=== PATIENT | male | born 1970 | race Caucasian/White ===

== ENCOUNTER 2023-09-12 12:34 | Inpatient (IN) ==
[2023-09-12 13:33] LABS: Basophils # (auto) 0.12 K/uL (0.00-0.20); Eosinophils # (auto) 0.08 K/uL (0.00-0.50); Eosinophils % (auto) 0.6 %; Hematocrit (blood only) 28.1 % (42.0-52.0); Hemoglobin 10.6 g/dl (14.0-18.0); Immature Granulocytes # (auto) 0.16 K/uL (0.01-0.20); Immature Granulocytes % (auto) 1.3 %; Lymphocytes # (auto) 1.55 K/uL (1.20-3.40); Lymphocytes % (auto) 12.6 %; Mean Corpuscular Hemoglobin 33.2 pg (25.0-34.0); Mean Corpuscular Hgb Conc 37.7 g/dL (32.0-36.0); Mean Corpuscular Volume 88.1 fL (80.0-100.0); Monocytes # (auto) 1.77 K/uL (0.11-0.59); Monocytes % (auto) 14.4 %; Neutrophils # (auto) 8.63 K/uL (1.40-6.50); Neutrophils % (auto) 70.1 %; Platelet Count 210 K/uL (130-400); RDW Coefficient of Variation 23.9 % (11.5-14.5); RDW Standard Deviation 74.5 fL (36.4-46.3); Red Blood Count 3.19 M/uL (4.70-6.10); White Blood Count 12.31 K/ul (4.8-10.8)
[2023-09-12 13:58] LABS: Albumin Globulin Ratio 0.8 (0.9-2); BUN Creatinine Ratio 16.9 (10-20); Bilirubin,Total 7.5 mg/dl (0.2-1.0); Creatinine Clr Calc Pharmacy 147.8 ml/min; Est GFR (Non-African American) 114.8 ml/min; Globulin 3.6 gm/dl (2.5-4.0); Potassium 3.3 mmol/L (3.5-5.1); Total Protein 6.6 gm/dl (6.0-8.3)
[2023-09-12 14:01] LABS: Anisocytosis Present; Polychromasia 1+; Target Cells 2+
--- NOTE | 2023-09-12 14:11 | Emergency Department Note ---
Impression & Plan Hyponatremia, Alcoholism, Decompensated hepatic cirrhosis, Anemia, Hyperbilirubinemia, Transaminitis ED Provider Note NAME: GERMAN AREVALO AGE: 53 SEX: M : 1970 ARRIVES VIA: Walk-In INFORMANT: Patient ED PROVIDER(S): David Kelley DO CHIEF COMPLAINT: abdominal fullness HPI: Patient is a 53-year-old male who presents to the ER with past medical history of hypertension and alcoholism for abdominal distention. He admits to drinking 2 beers a day for years. He denies any headache or change in vision. No chest pain or shortness of breath. He admits to abdominal distention. No dysuria, urgency, or frequency. He does feel little unsteady on his feet. ADDITIONAL HISTORY OBTAINED: Per HPI Chronic Medical/Social Conditions Affecting Care: Per HPI PAST MEDICAL HISTORY:See Below PAST SURGICAL HISTORY:See Below FAMILY HISTORY:See Below SOCIAL HISTORY:See Below HOME MEDICATIONS:See Below ALLERGIES:See Below VITALS:See Below PHYSICAL EXAMINATION: GENERAL: Sitting up in bed, alert, well appearing, well nourished, no distress, non-toxic EYE EXAM: normal conjunctiva. Scleral icterus OROPHARYNX: no exudate, no erythema, lips, buccal mucosa, and tongue normal and mucous membranes are moist NECK: supple, no nuchal rigidity, no adenopathy, non-tender LUNGS: Clear to auscultation. Normal chest wall mechanics HEART: no murmurs, S1 normal and S2 normal ABDOMEN: abdomen distended, non-tender, normo-active bowel sounds, no masses, no rebound or guarding. UPPER EXTREMITIES: upper extremities are grossly normal. LOWER EXTREMITIES: No pitting edema. NEURO EXAM: Normal sensorium, cranial nerves II-XII grossly intact, normal speech, no gross weakness of arms, no gross weakness of legs. MEDICAL DECISION MAKING: Patient is a 53-year-old male who presents the ER for above-stated complaint. IV was established blood work is obtained. Labs show mild leukocytosis of 12,000. Mild anemia 10. No significant thrombocytopenia. INR was elevated at 1.5. Hyponatremia at 119 with a hypokalemia. Bilirubin was elevated at 7.5 as well as a transaminitis. Lipase was normal. CT abdomen pelvis was obtained and showed ascites but no acute pathology. Patient was given IV fluids. He was updated bedside and discussed case with the hospitalist for further evaluation management treatment. Consults/Care Managements Discussions: Per MDM Triage Nursing notes reviewed. Limited review of prior medical records performed Vital Signs: reviewed and remarkable for HTN and tachy Differential diagnosis: Differential diagnoses includes but is not limited to gastritis, peptic ulcer disease, GERD, gallbladder disease, pancreatitis, small bowel obstruction, appendicitis, diverticulitis, hernia, urinary tract infection, torsion, perforation, trauma, infectious. ER treatment provided: See below Diagnostics interpreted by me include EKG and cardiac monitoring as listed below: -Cardiac Monitoring: An order was placed for continuous cardiac monitoring. The monitor shows a rate of 110 with sinus rhythm. -ECG: none -Laboratory studies:Interpreted by me as stated above in MDM and shown below. Imaging studies: Xrays: As interpreted by me:none CTs show: CT abdomen pelvis per my preliminary interpretation showed ascites CT abdomen pelvis as described above Procedures:none Critical Care: None Past Med/Surg History Medical History (Updated 09/12/23 @ 20:35 by David Kelley DO) Hypertension Surgical History Hx of hernia repair Family History (Updated 09/12/23 @ 16:20 by Ping Russo PA-C) Denies family history of Diabetes Coronary heart disease Kidney disease Myocardial infarction Cancer Hypertension Stroke Social History (Updated 09/12/23 @ 15:19 by Ping Russo PA-C) Smoking Status: Never smoker Second Hand Exposure: No; Do You Dip or Chew Tobacco: Yes (on occasion); Tobacco Cessation Education Requested by Patient: No Hx Alcohol Use: Yes Alcohol type: beer Hx Substance Use: No Preferred Language: Citizen Of [place] Communication Ability: Effective Ortho/Prosthetic Aide Required: No Beliefs That Will Affect Care: None Current Living Situation: Alone Other Information That Helps Us Care for You: No Feels Safe at Home: Yes Safety Concerns: Feels Safe At This Time Assistive Devices: None Allergies Allergies Allergy/AdvReac Type Severity Reaction Status Date / Time No Known Allergies Allergy Unverified 09/12/23 15:48 Home Meds Home Medications Medication Instructions Recorded Confirmed bismuth subsalicylate 262 mg/15 mL 524 mg PO QID PRN .GI-UPSET/PAIN 09/12/23 09/12/23 oral suspension (Pepto-Bismol) Results & Data (ED) Vital Signs Vital Signs - 24 hr 09/12/23 12:48 09/12/23 14:30 09/12/23 14:41 Temperature 37.5 C Temperature Source Temporal Artery Scan Pulse Rate 116 H 105 H Pulse Rate [Finger] Respiratory Rate 18 Respiratory Effort / Characteristics Non-Labored Spontaneous Respiratory Depth Normal Respiratory Pattern Regular Blood Pressure 146/87 H Blood Pressure [Right Arm] Blood Pressure Mean 106 Blood Pressure Mean [Right Arm] Blood Pressure Position Sitting Pulse Oximetry 95 Oxygen Delivery Method Room Air Room Air Sepsis Recent Fever Within 48 Hours No Sepsis New/Unexplained Change in Mental Status No Sepsis Action Taken by Nursing No Action Required 09/12/23 15:00 09/12/23 15:45 Temperature Temperature Source Pulse Rate 108 H Pulse Rate [Finger] 109 H Respiratory Rate 15 16 Respiratory Effort / Characteristics Respiratory Depth Respiratory Pattern Blood Pressure 151/96 H Blood Pressure [Right Arm] 133/93 Blood Pressure Mean 114 Blood Pressure Mean [Right Arm] 106 Blood Pressure Position Pulse Oximetry 98 96 Oxygen Delivery Method Room Air Room Air Sepsis Recent Fever Within 48 Hours Sepsis New/Unexplained Change in Mental Status Sepsis Action Taken by Nursing Laboratory Data 09/12/23 13:15 09/12/23 13:15 Lab Results 09/12/23 Range/Units 13:15 WBC 12.31 H (4.8-10.8) K/ul RBC 3.19 L (4.70-6.10) M/uL Hgb 10.6 L (14.0-18.0) g/dl Hct 28.1 L (42.0-52.0) % MCV 88.1 (80.0-100.0) fL MCH 33.2 (25.0-34.0) pg MCHC 37.7 H (32.0-36.0) g/dL RDW Std Deviation 74.5 H (36.4-46.3) fL RDW Coeff of Issac 23.9 H (11.5-14.5) % Plt Count 210 (130-400) K/uL MPV 10.0 (9.4-12.4) fL Immature Gran % (Auto) 1.3 % Neut % (Auto) 70.1 % Lymph % (Auto) 12.6 % [place] % (Auto) 14.4 % Eos % (Auto) 0.6 % Baso % (Auto) 1.0 % Neut # (Auto) 8.63 H (1.40-6.50) K/uL Lymph # (Auto) 1.55 (1.20-3.40) K/uL [place] # (Auto) 1.77 H (0.11-0.59) K/uL Eos # (Auto) 0.08 (0.00-0.50) K/uL Baso # (Auto) 0.12 (0.00-0.20) K/uL Immature Gran # (Auto) 0.16 (0.01-0.20) K/uL Polychromasia 1+ Anisocytosis Present Target Cells 2+ PT 16.0 H (9.0-12.0) Seconds INR 1.5 H (0.9-1.1) Sodium 119 L* (136-145) mmol/L Potassium 3.3 L (3.5-5.1) mmol/L Chloride 84 L (98-107) mmol/L Carbon Dioxide 23 (21-32) mmol/L Anion Gap 12 H (3-11) BUN 10 (6-23) mg/dl Creatinine 0.59 L (0.6-1.4) mg/dl Est Cr Clr Drug Dosing 147.8 ml/min Est GFR ( Amer) 133.0 ml/min Est GFR (Non-Af Amer) 114.8 ml/min BUN/Creatinine Ratio 16.9 (10-20) Glucose 122 H (70-99(Fasting)) mg/dl Osmolality 268 L (280-300) mOsm/kg Calcium 8.0 L (8.6-10.3) mg/dl Total Bilirubin 7.5 H (0.2-1.0) mg/dl AST 131 H (13-39) U/L ALT 56 H (7-52) U/L Alkaline Phosphatase 108 H (34-104) U/L Total Protein 6.6 (6.0-8.3) gm/dl Albumin 3.0 L (3.4-5.0) gm/dl Globulin 3.6 (2.5-4.0) gm/dl Albumin/Globulin Ratio 0.8 L (0.9-2) Lipase 68 (11-82) U/L Procalcitonin 0.33 (0-0.5) ng/ml Administered Medications Pantoprazole Sodium (Pantoprazole 40 Mg Tab) 40 mg PO BID ENDY Stop: 10/12/23 20:59 Last Admin: 09/12/23 20:01 Dose: 40 mg Documented By: JENNIFER Potassium Chloride (Potassium Chloride Crtab 20 Meq Tabcr) 20 meq PO TID ENDY Stop: 10/12/23 20:59 Last Admin: 09/12/23 20:01 Dose: 20 meq Documented By: JENNIFER Discontinued Medications Furosemide (Furosemide 40 Mg/4 Ml Vial) 40 mg IV NOW STA Stop: 09/12/23 15:56 Last Admin: 09/12/23 20:00 Dose: 40 mg Documented By: JENNIFER Sodium Chloride (Nss) 500 mls @ 999 mls/hr IV .Q31M ONE Stop: 09/12/23 14:39 Last Infusion: 09/12/23 15:02 Dose: Infused Documented By: Admin: 09/12/23 14:28 Dose: 999 mls/hr Documented By: BARRY Thiamine HCl 100 mg/ Syringe 10 mls @ 2 mls/min IV NOW STA Stop: 09/12/23 14:15 Last Admin: 09/12/23 14:53 Dose: 2 mls/min Documented By: BRIE Folic Acid 1 mg/ Syringe 10 mls @ 5 mls/min IV NOW STA Stop: 09/12/23 14:12 Last Admin: 09/12/23 14:56 Dose: 5 mls/min Documented By: BRIE Ioversol (Optiray 320 100ml) 90 ml IV ONCE ONE Stop: 09/12/23 14:19 Last Admin: 09/12/23 14:19 Dose: 90 ml Documented By: SANJIV Imaging Data Radiologist's Impression: Abdomen/Pelvis CT 09/12/23 14:[address] WITH IV CONTRAST CT DOSE: 1146.12 mGy.cm HISTORY: Generalized abd pain jaundice, transaminitis, elevated bilirubin TECHNIQUE: Multiaxial CT images of the abdomen and pelvis were performed following the use of intravenous contrast. A dose lowering technique was utilized adhering to the principles of ALARA. COMPARISON STUDY: None. FINDINGS: The lung bases are essentially clear. No pneumoperitoneum. No pneumatosis. No acute fractures identified. Calcified left hilar lymph nodes are noted. Tiny fat-containing right inguinal hernia. Multiple scattered small distal paraesophageal, abdominal, and perirectal varicosities suggesting underlying portal hypertension. Nodular contour to the liver which demonstrates diffuse heterogeneous enhancement likely secondary to the cirrhosis. The diffuse heterogeneous enhancement may be due to a combination of the patient's cirrhosis, regenerative nodules, and fatty change. Multifocal hepatocellular carcinoma would be difficult to exclude on this study but considered less likely. Recommend correlation with AFP for further evaluation the hepatic and portal veins are slightly attenuated likely due to the cirrhotic liver but appear patent. The splenic vein is patent. The spleen, adrenal glands, and kidneys are unremarkable. No hydronephrosis. No retroperitoneal lymphadenopathy. Normal caliber abdominal aorta. Moderate ascites. The pancreas enhances normally. No gallbladder wall thickening. Right lateral displacement likely due to the ascites. No significant bladder wall thickening. Colonic diverticulosis. No evidence for acute diverticulitis. Questionable thickening of the sigmoid colon is likely due to underdistention. Otherwise, no definite bowel wall thickening or obstruction. Normal appendix. IMPRESSION: 1. Cirrhotic liver with evidence for portal hypertension and a moderate amount of ascites. 2. Heterogeneous enhancement throughout the liver which is likely due to the patient's cirrhosis, small regenerative nodules, areas of fatty change. An underlying multifocal HCC would be difficult to exclude a considered less likely. Therefore, recommend correlate with AFP for further evaluation. 3. Colonic diverticulosis. No evidence for acute diverticulitis. 4. No bowel wall thickening or obstruction. ACT 112: Negative or not required by law. Electronically signed by: Azam Peterson M.D. 09/12/2023 2:47 PM Portal Vein US 09/12/23 15:32 US duplex portal hepatic veins CLINICAL HISTORY: r/o PVT COMPARISON STUDY: CT of the abdomen and pelvis and MRCP September 12, 2023. TECHNIQUE: Color and duplex Doppler sonography of the major hepatic vessels was attempted. FINDINGS: This exam is nondiagnostic. The major hepatic vessels are obscured due to overlying bowel gas. Moderate perihepatic ascites is noted. The liver is heterogeneous and echogenic. IMPRESSION: 1. Nondiagnostic evaluation of the hepatic vessels due to overlying bowel gas/suboptimal penetration. 2. Cirrhosis. Hepatic steatosis. Moderate perihepatic ascites. ACT 112: Negative or not required by law. Electronically signed by: Abundio Mendoza M.D. 09/12/2023 5:59 PM Venous Doppler Study 09/12/23 15:32 BILATERAL LOWER EXTREMITY VENOUS DOPPLER CLINICAL HISTORY: Lower extremity swelling. COMPARISON STUDY: No previous studies for comparison. TECHNIQUE: Sonography of the deep venous system of the bilateral lower extremities was performed. Compression and augmentation were evaluated. FINDINGS: The bilateral common femoral, superficial femoral and popliteal veins were compressible. Augmentation was normal. Flow was shown within the deep calf vessels. IMPRESSION: No evidence of deep venous thrombus within the bilateral lower extremities. ACT 112: Negative or not required by law. Electronically signed by: Abundio Mendoza M.D. 09/12/2023 5:56 PM Discharge Plan Visit Data Chief Complaint: Abdominal Pain Stated Complaint: CRAMPING AND BLOATING IN STOMACH ED Provider: David Kelley Discharge Problem: Hyponatremia, Alcoholism, Decompensated hepatic cirrhosis, Anemia, Hyperbilirubinemia, Transaminitis Patient Disposition: Admitted As Inpatient Discharge Instructions Interventions: ED Discharge Assessment Last Done: 09/12/23 17:32 Discharge Problem: Anemia Qualifiers: Anemia type: unspecified type Qualified Code(s): D64.9 - Anemia, unspecified
[2023-09-12] MEDS: OPTIRAY 320 100ml IV ONE (14:19)
[2023-09-12] MEDS: SODIUM CHLORIDE 0.9% 500 ML IV ONE (14:28)
--- NOTE | 2023-09-12 14:49 | CT Scan Report ---
ABDOMEN AND PELVIS CT WITH IV CONTRAST CT DOSE: 1146.12 mGy.cm HISTORY: Generalized abd pain jaundice, transaminitis, elevated bilirubin TECHNIQUE: Multiaxial CT images of the abdomen and pelvis were performed following the use of intrave nous contrast. A dose lowering technique was utilized adhering to the principles of ALARA. COMPARISON STUDY: None. FINDINGS: The lung bases are essentially clear. No pneumoperitoneum. No pneumatosis. No acute fractur es identified. Calcified left hilar lymph nodes are noted. Tiny fat-containing right inguinal hernia. Multiple scattered small distal paraesophageal, abdominal, and perirectal varicosities suggesting un derlying portal hypertension. Nodular contour to the liver which demonstrates diffuse heterogeneous e nhancement likely secondary to the cirrhosis. The diffuse heterogeneous enhancement may be due to a c ombination of the patient's cirrhosis, regenerative nodules, and fatty change. Multifocal hepatocellu lar carcinoma would be difficult to exclude on this study but considered less likely. Recommend corre lation with AFP for further evaluation the hepatic and portal veins are slightly attenuated likely du e to the cirrhotic liver but appear patent. The splenic vein is patent. The spleen, adrenal glands, a nd kidneys are unremarkable. No hydronephrosis. No retroperitoneal lymphadenopathy. Normal caliber ab dominal aorta. Moderate ascites. The pancreas enhances normally. No gallbladder wall thickening. Righ t lateral displacement likely due to the ascites. No significant bladder wall thickening. Colonic div erticulosis. No evidence for acute diverticulitis. Questionable thickening of the sigmoid colon is li roberth due to underdistention. Otherwise, no definite bowel wall thickening or obstruction. Normal appe ndix. IMPRESSION: 1. Cirrhotic liver with evidence for portal hypertension and a moderate amount of ascites. 2. Heterogeneous enhancement throughout the liver which is likely due to the patient's cirrhosis, sma ll regenerative nodules, areas of fatty change. An underlying multifocal HCC would be difficult to ex clude a considered less likely. Therefore, recommend correlate with AFP for further evaluation. 3. Colonic diverticulosis. No evidence for acute diverticulitis. 4. No bowel wall thickening or obstruction. ACT 112: Negative or not required by law. Electronically signed by: Azam Peterson M.D. 09/12/2023 2:47 PM
[2023-09-12] MEDS: THIAMINE HCL 100 MG in SYRINGE 9 ML IV STA (14:53)
[2023-09-12] MEDS: FOLIC ACID 1 MG in SYRINGE 9.8 ML IV STA (14:56)
--- NOTE | 2023-09-12 16:08 | History & Physical Report ---
Date of Service September 12, 2023 Assessment & Plan (1) Decompensated hepatic cirrhosis: (2) Alcoholism: (3) Anemia: (4) Hyponatremia: (5) Hyperbilirubinemia: (6) Transaminitis: (7) Hypokalemia: Plan This is a 53-year-old male who has a prior past medical history of hypertension and alcohol dependence who presents to ED secondary to abdominal pain and bloating for the past 3 weeks. SIRS - tachycardia, leukocytosis Decompensated hepatic cirrhosis Alcoholism Hyperbilirubinemia Transaminitis Admit to PCU Consult gastroenterology -discussed with Mary ASHRAF who recommends diagnostic paracentesis, MRCP Tbili 7.5, AST 131, ALT 54, ALP 108 obtain MRCP given hyperbilirubinemia Discussed with radiology, a diagnostic and therapeutic paracentesis has been ordered for the a.m. Will hold on SBP prophylaxis until post paracentesis He does meet SIRS criteria, currently afebrile Discussed with ED provider who is unable to do diagnostic paracentesis in ED, and radiology not available till morning Obtain portal vein Doppler, bilateral lower extremity Doppler AFP, KARLEE, acute hepatitis, medical alcohol, PT/INR, ceruloplasmin, anti sm ab ordered GI recommends holding off on acute hep treatment until SBP ruled out follow LFTS MELD currently 19 IV Lasix, add spironolactone in a.m. Hyponatremia, hypervolemic suspect more of a chronic picture Discussed with nephrology who recommends IV Lasix Lasix [address] Barr catheter for strict I's and O's urine osm, urine na ordered, serum osm 268 Repeat BMP now and at 2200 to prevent overcorrection FR to 1500ml Hypokalemia Replace Check mag and Phos as well Alcoholism pt reports 2 beers/daily for years last drink yesterday, 1 beer, hasn't felt well enough to drink awss scale Daily thiamine and folic acid Anemia Admitting hemoglobin 10.7, no signs of bleeding Place on PPI PID anemia panel in am. DVT ppx: SCDS for now, recommend chemical prophylaxis after paracentesis performed FULL CODE PCP: Pt previously followed Dr. Lee years ago; however has not seen a Provider in many years Dispo: admit to PCU Pt was seen and examined in collaboration with Dr. Jimenes, please see addendum A total of 90 minutes was spent coordinating, documenting, and providing care for this patient excluding time spent in the performance of separately billed services. This included personally viewing all current laboratories and imaging studies, medication reconciliation, outpatient chart review, and discussion with specialists. History of Present Illness Chief Complaint: Abdominal pain and bloating. Primary Care Provider: DAVID PCP This is a 53-year-old male who has a prior past medical history of hypertension and alcohol dependence who presents to ED secondary to abdominal pain and bloating for the past 3 weeks. He states he was in his normal state of health until about 3 weeks ago. He noticed gradual enlargement and distention of his abdomen and pain. He said initially pain was in his lower abdomen but now is all over. He describes the pain as an ache. The pain comes and goes, nothing seems to make it better or worse including meals. He has never experienced anything like this in the past. Position change does not make the symptoms any worse. He denies any nausea, vomiting, hematemesis, melena or hematochezia. He states his bowel movements have been a lot smaller than normal. He complains of early satiety. He states his baseline weight is around 1 65-1 68. He is unsure if he has gained or lost any weight. He is unsure if he has any lower extremity swelling. He denies any recent illness, fever, chills, sweats, lightheadedness, dizziness, shortness breath at rest or with exertion, chest pain, hemoptysis, nausea, vomiting, dysuria, increased urgency or frequency with urination. In ED patient remained hemodynamically stable and slightly tachycardic. Lab work abnormalities were notable for leukocytosis 12.31k, anemia with a hemoglobin of 10.6 and 28.1, sodium 119, testing 3.3, chloride 84, gap 12, BUN 10, creatinine 0.59, serum osmolality 269, total bilirubin 7.5, AST 131, ALT 56, alkaline phosphatase [address] abdomen pelvis with evidence of cirrhosis, moderate ascites And concern for heterogenous enhancement throughout the liver with areas of fatty change. Underlying multifocal HCC would be difficult to exclude. In ED he received 500 mL of IV fluid. Allergies Allergy/AdvReac Type Severity Reaction Status Date / Time No Known Allergies Allergy Unverified 09/12/23 15:48 Home Medications Medication Instructions Recorded Confirmed Type bismuth subsalicylate 262 mg/15 mL 524 mg PO QID PRN .GI-UPSET/PAIN 09/12/23 09/12/23 History oral suspension (Pepto-Bismol) Past Med/Surg History Medical History (Updated 09/12/23 @ 20:35 by David Kelley DO) Hypertension Surgical History Hx of hernia repair Family History (Updated 09/12/23 @ 16:20 by Ping Russo PA-C) Denies family history of Diabetes Coronary heart disease Kidney disease Myocardial infarction Cancer Hypertension Stroke Social History (Updated 09/12/23 @ 15:19 by Ping Russo PA-C) Smoking Status: Never smoker Second Hand Exposure: No; Do You Dip or Chew Tobacco: Yes (on occasion); Tobacco Cessation Education Requested by Patient: No Hx Alcohol Use: Yes Alcohol type: beer Hx Substance Use: No Preferred Language: Lithuanian Communication Ability: Effective Drum Cleaner Required: No Beliefs That Will Affect Care: None Current Living Situation: Alone Other Information That Helps Us Care for You: No Feels Safe at Home: Yes Safety Concerns: Feels Safe At This Time Assistive Devices: None Review of Systems Review of Systems: All systems reviewed & are unremarkable except as noted in HPI & below Physical Exam Physical Exam: Constitutional: WD/WN, vitals as above, NAD, sitting up in bed, pleasant, conversing easily Head: Normocephalic, Atraumatic Eyes: PERRL, conjunctivae normal, icteric sclerae ENMT: external ear and nose normal, oropharynx normal Neck: trachea midline, no thyromegaly normal visual inspection Respiratory: normal respiratory effort, lungs clear to auscultation, no wheeze, rales, rhonchi. Normal insp/exp effort, no accessory muscle use Cardiovascular: RRR, no murmur, +2-3 lower extremity edema, no erythema Vessels: no JVD or carotid bruit Chest: normal inspection of chest Abdomen: Distended abdomen, tense, nontender to palpation, distant/hypoactive bowel sounds Musculoskeletal: no cyanosis or clubbing, extremities motor strength 5/5 Skin: Jaundice, no rashes, warm and dry normal turgor Neurologic: PERRL, EOMI, accommodation nl, no face palsy, no dysarthria CN's II-XI intact bilaterally and moves all extremities Psychiatric: A+Ox3, euthymic affect Lymphatic: no cervical or axillary lymphadenopathy : deferred Results & Data Results & Data Vital Signs (Past 12 Hours) Vital Signs Temp Pulse Pulse Resp BP BP Pulse Ox 09/12/23 15:45 109 H 16 133/93 96 09/12/23 15:00 108 H 15 151/96 H 98 09/12/23 14:41 105 H 09/12/23 14:30 09/12/23 12:48 37.5 C 116 H 18 146/87 H 95 O2 Del Method 09/12/23 15:45 Room Air 09/12/23 15:00 Room Air 09/12/23 14:41 09/12/23 14:30 Room Air 09/12/23 12:48 Room Air Diagnostic Findings Abdomen/Pelvis CT 09/12/23 14:[address] WITH IV CONTRAST CT DOSE: 1146.12 mGy.cm HISTORY: Generalized abd pain jaundice, transaminitis, elevated bilirubin TECHNIQUE: Multiaxial CT images of the abdomen and pelvis were performed following the use of intravenous contrast. A dose lowering technique was utilized adhering to the principles of ALARA. COMPARISON STUDY: None. FINDINGS: The lung bases are essentially clear. No pneumoperitoneum. No pneumatosis. No acute fractures identified. Calcified left hilar lymph nodes are noted. Tiny fat-containing right inguinal hernia. Multiple scattered small distal paraesophageal, abdominal, and perirectal varicosities suggesting underlying portal hypertension. Nodular contour to the liver which demonstrates diffuse heterogeneous enhancement likely secondary to the cirrhosis. The diffuse heterogeneous enhancement may be due to a combination of the patient's cirrhosis, regenerative nodules, and fatty change. Multifocal hepatocellular carcinoma would be difficult to exclude on this study but considered less likely. Recommend correlation with AFP for further evaluation the hepatic and portal veins are slightly attenuated likely due to the cirrhotic liver but appear patent. The splenic vein is patent. The spleen, adrenal glands, and kidneys are unremarkable. No hydronephrosis. No retroperitoneal lymphadenopathy. Normal caliber abdominal aorta. Moderate ascites. The pancreas enhances normally. No gallbladder wall thickening. Right lateral displacement likely due to the ascites. No significant bladder wall thickening. Colonic diverticulosis. No evidence for acute diverticulitis. Questionable thickening of the sigmoid colon is likely due to underdistention. Otherwise, no definite bowel wall thickening or obstruction. Normal appendix. IMPRESSION: 1. Cirrhotic liver with evidence for portal hypertension and a moderate amount of ascites. 2. Heterogeneous enhancement throughout the liver which is likely due to the patient's cirrhosis, small regenerative nodules, areas of fatty change. An underlying multifocal HCC would be difficult to exclude a considered less likely. Therefore, recommend correlate with AFP for further evaluation. 3. Colonic diverticulosis. No evidence for acute diverticulitis. 4. No bowel wall thickening or obstruction. ACT 112: Negative or not required by law. Electronically signed by: Azam Peterson M.D. 09/12/2023 2:47 PM Medications Administered Medication List Discontinued Medications Sodium Chloride (Nss) 500 mls @ 999 mls/hr IV .Q31M ONE Stop: 09/12/23 14:39 Last Infusion: 09/12/23 15:02 Dose: Infused Documented By: Admin: 09/12/23 14:28 Dose: 999 mls/hr Documented By: BARRY Thiamine HCl 100 mg/ Syringe 10 mls @ 2 mls/min IV NOW STA Stop: 09/12/23 14:15 Last Admin: 09/12/23 14:53 Dose: 2 mls/min Documented By: BRIE Folic Acid 1 mg/ Syringe 10 mls @ 5 mls/min IV NOW STA Stop: 09/12/23 14:12 Last Admin: 09/12/23 14:56 Dose: 5 mls/min Documented By: BRIE Ioversol (Optiray 320 100ml) 90 ml IV ONCE ONE Stop: 09/12/23 14:19 Last Admin: 09/12/23 14:19 Dose: 90 ml Documented By: SANJIV COVID-19 Results Results COVID-19 Adm Lab Results: RBC 3.06 M/uL (4.70-6.10) L 09/13/23 WBC 11.02 K/ul (4.8-10.8) H 09/13/23 Hgb 10.0 g/dl (14.0-18.0) L 09/13/23 Hct 26.3 % (42.0-52.0) L 09/13/23 Plt Count 191 K/uL (130-400) 09/13/23 Neutrophils (%) (Auto) 65.6 % 09/13/23 Lymphocytes (%) (Auto) 16.0 % 09/13/23 Monocytes # (Auto) 1.62 K/uL (0.11-0.59) H 09/13/23 Eosinophils # (Auto) 0.17 K/uL (0.00-0.50) 09/13/23 Immature Granulocyte % (Auto) 1.1 % 09/13/23 Neutrophils # (Auto) 7.23 K/uL (1.40-6.50) H 09/13/23 Lymphocytes # (Auto) 1.76 K/uL (1.20-3.40) 09/13/23 Monocytes # (Auto) 1.62 K/uL (0.11-0.59) H 09/13/23 Eosinophils # (Auto) 0.17 K/uL (0.00-0.50) 09/13/23 Basophils # (Auto) 0.12 K/uL (0.00-0.20) 09/13/23 Immature Granulocyte # (Auto) 0.12 K/uL (0.01-0.20) 4 Polychromasia 1+ 09/12/23 Anisocytosis Present 09/13/23 Target Cells 2+ 09/13/23 Na 122 mmol/L (136-145) L 09/13/23 K 3.2 mmol/L (3.5-5.1) L 09/13/23 Cl 85 mmol/L (98-107) L 09/13/23 CO2 30 mmol/L (21-32) 09/13/23 Anion Gap 7 (3-11) 09/13/23 BUN 9 mg/dl (6-23) 09/13/23 Creatinine 0.58 mg/dl (0.6-1.4) L 09/13/23 BUN/Creatinine Ratio 15.5 (10-20) 09/13/23 Glucose Level 91 mg/dl (70-99(Fasting)) 09/13/23 Ca 7.7 mg/dl (8.6-10.3) L 09/13/23 Phosphorus Level 2.9 mg/dl (2.5-4.9) 09/13/23 Total Bilirubin 8.5 mg/dl (0.2-1.0) H 09/13/23 AST/SGOT 120 U/L (13-39) H 09/13/23 ALT/SGPT 49 U/L (7-52) 09/13/23 Alkaline Phosphatase 93 U/L (34-104) 09/13/23 Total Protein 6.1 gm/dl (6.0-8.3) 09/13/23 Albumin 3.2 gm/dl (3.4-5.0) L 09/13/23 Globulin 2.9 gm/dl (2.5-4.0) 09/13/23 Albumin/Globulin Ratio 1.1 (0.9-2) 09/13/23 Procalcitonin 0.33 ng/ml (0-0.5) 09/12/23 Ferritin 212.9 ng/ml (8-388) 09/13/23 INR 1.6 (0.9-1.1) H 09/13/23 Triglycerides Level 73 mg/dl (0-150) 09/13/23 Code Status & VTE Plan Code Status FULL CODE VTE Prophylaxis Plan VTE Prophylaxis will be ordered: Yes Supervising Physician Co-Signing Physician Notes Pt was seen and examined. Agreed with Ping DURAN exam, assessment and plan. 53-year-old male with PMH of hypertension and alcohol dependence who presents to ED due to increase abdominal pain, pressure and bloating for the past 3 weeks. Pt said that he has been feeling weak. he said that he feels full after a few bites of food. Pt said that he drinks 2 beers daily. Pt said that his abdominal distention has been getting worst. Denies fever, chills, sweats, lightheadedness, dizziness, shortness breath at rest or with exertion, chest pain, hemoptysis, nausea, vomiting. Lab on admission with with WBC 12.31k, anemia with a hemoglobin of 10.6 and 28.1, sodium 119, testing 3.3, chloride 84, gap 12, BUN 10, creatinine 0.59, serum osmolality 269, total bilirubin 7.5, AST 131, ALT 56, alkaline phosphatase 108. CT abdomen pelvis with evidence of cirrhosis, moderate ascites and concern for heterogenous enhancement throughout the liver with areas of fatty change. In ED he received 500 mL of IV fluid. Will give lasix 40mg IV with albumin. Will arrange for paracentesis. unfortunately IR will be able to do the paracentesis in AM. Will hold on abx for now. but if pt becomes febrile, will start on empirical abx. GI consulted- recommended diagnostic paracentesis, MRCP. Nephrology consult for the management of hyponatremia. Will check urine Na, osmolarity. Continue monitor closely. MD Jalil
--- NOTE | 2023-09-12 17:57 | Ultrasound Report ---
BILATERAL LOWER EXTREMITY VENOUS DOPPLER CLINICAL HISTORY: Lower extremity swelling. COMPARISON STUDY: No previous studies for comparison. TECHNIQUE: Sonography of the deep venous system of the bilateral lower extremities was performed. Co mpression and augmentation were evaluated. FINDINGS: The bilateral common femoral, superficial femoral and popliteal veins were compressible. A ugmentation was normal. Flow was shown within the deep calf vessels. IMPRESSION: No evidence of deep venous thrombus within the bilateral lower extremities. ACT 112: Negative or not required by law. Electronically signed by: Abundio Mendoza M.D. 09/12/2023 5:56 PM
--- NOTE | 2023-09-12 18:00 | Ultrasound Report ---
US duplex portal hepatic veins CLINICAL HISTORY: r/o PVT COMPARISON STUDY: CT of the abdomen and pelvis and MRCP September 12, 2023. TECHNIQUE: Color and duplex Doppler sonography of the major hepatic vessels was attempted. FINDINGS: This exam is nondiagnostic. The major hepatic vessels are obscured due to overlying bowel g as. Moderate perihepatic ascites is noted. The liver is heterogeneous and echogenic. IMPRESSION: 1. Nondiagnostic evaluation of the hepatic vessels due to overlying bowel gas/suboptimal penetration. 2. Cirrhosis. Hepatic steatosis. Moderate perihepatic ascites. ACT 112: Negative or not required by law. Electronically signed by: Abundio Mendoza M.D. 09/12/2023 5:59 PM
[2023-09-12 18:01] LABS: INR 1.5 (0.9-1.1)
[2023-09-12] MEDS ORDERED: LORazepam 1 MG TAB PO PRN (18:11)
[2023-09-12] MEDS ORDERED: MAGNESIUM HYDROXIDE SUSP 30 ML UDC PO PRN (18:11)
[2023-09-12] MEDS ORDERED: ALUMINUM/MAGNESIUM SUSP 30 ML UDC PO PRN (18:11)
[2023-09-12] MEDS ORDERED: ONDANSETRON INJ 2 MG/ML 2 ML VIAL IV PRN (18:11)
--- NOTE | 2023-09-12 19:41 | Magnetic Resonance Report ---
Exam(s): MRI MRCP EXAM: MR Abdomen Without Intravenous Contrast, MRCP Protocol CLINICAL HISTORY: Reason for exam: hyperbilirubemia. TECHNIQUE: Multiplanar magnetic resonance images of the abdomen without intravenous contrast using MRCP protocol. COMPARISON: CT abdomen/pelvis on same day FINDINGS: Bile ducts: See below. Gallbladder: Fluid fluid level in the gallbladder may represent sludge. No biliary dilatation. No stones. Liver: Cirrhotic liver. Hepatomegaly. Heterogeneity of the liver without discrete lesion. Although evaluation is limited without IV contrast. Pancreas: Unremarkable. No ductal dilation. Spleen: Unremarkable. No splenomegaly. Adrenals: Unremarkable. No mass. Kidneys and ureters: Unremarkable. No hydronephrosis. Stomach and bowel: Unremarkable. No obstruction. Intraperitoneal space: Large amount of ascites. IMPRESSION: 1. Large amount of ascites. 2. Cirrhotic liver. Hepatomegaly. Heterogeneity of the liver without discrete lesion. Although evaluation is limited without IV contrast. 3. Fluid fluid level in the gallbladder may represent sludge. No biliary dilatation. Electronically signed by: Elijah Almaraz M.D. 09/12/23 19:40 PM
[2023-09-12] MEDS: FUROSEMIDE 40 MG/4 ML VIAL IV STA (20:00)
[2023-09-12] MEDS: POTASSIUM CHLORIDE CRTAB 20 MEQ TABCR PO STA (20:00)
[2023-09-12] MEDS: POTASSIUM CHLORIDE CRTAB 20 MEQ TABCR PO SCH (20:01)
[2023-09-12] MEDS: PANTOprazole 40 MG TAB PO SCH (20:01)
[2023-09-12 20:33] LABS: BUN Creatinine Ratio 15.9 (10-20); Calcium 8.1 mg/dl (8.6-10.3); Creatinine Clr Calc Pharmacy 138.4 ml/min; Est GFR (African American) 129.5 ml/min; Est GFR (Non-African American) 111.7 ml/min; Phosphorus 2.2 mg/dl (2.5-4.9); Potassium 3.2 mmol/L (3.5-5.1)
[2023-09-12] MEDS: ALBUMIN 25% 25 GM/100 ML VIAL IV ONE (20:46)
[2023-09-12 21:07] LABS: Appearance Urine Clear (Clear); Bacteria Urine Automated Negative (Negative); Blood Urine Negative (Negative); Color Urine Orange; Epithelial Cell Urine Auto 20-30 /lpf (0-5); Glucose Urine UA Negative (Negative); Ketones Urine Negative (Negative); Leukocyte Esterase Urine 1+ (Negative); Nitrite Urine Positive (Negative); Protein Urine 1+ (Negative); Specific Gravity Urine > 1.045 (1.000-1.030); Urobilinogen Urine Positive (Negative)
[2023-09-12 21:08] LABS: Bilirubin Urine 2+ (Negative)
[2023-09-12 21:17] LABS: Mucus Urine Present (None Prsent)
[2023-09-12] MEDS: MoRPHine SULFATE 2 MG/ML CARP IV STA (22:24)
[2023-09-12] MEDS: FUROSEMIDE 40 MG/4 ML VIAL IV SCH (22:31)
[2023-09-12] MEDS: FUROSEMIDE INJ 20 MG/2 ML VIAL IV ONE (23:26)
[2023-09-12 23:37] LABS: Calcium 7.8 mg/dl (8.6-10.3); Potassium 3.1 mmol/L (3.5-5.1)
[2023-09-12 23:43] LABS: BUN Creatinine Ratio 13.6 (10-20); Creatinine Clr Calc Pharmacy 132.1 ml/min; Est GFR (Non-African American) 109.6 ml/min
[2023-09-13] MEDS: FUROSEMIDE 40 MG/4 ML VIAL IV SCH (04:50)
[2023-09-13 07:35] LABS: Vitamin B12 > 1500 pg/ml (180-914)
[2023-09-13 07:36] LABS: Folate (Folic Acid),Ser orPlas 4.91 ng/ml (>5.38)
[2023-09-13 07:41] LABS: Estimated Average Glucose 80 mg/dl; Hemoglobin A1C 4.4 % (4.5-5.6)
[2023-09-13 07:46] LABS: Alanine Aminotransferase 49 U/L (7-52); Albumin Globulin Ratio 1.1 (0.9-2); Albumin Level 3.2 gm/dl (3.4-5.0); Alkaline Phosphatase 93 U/L (34-104); Anion Gap 7 (3-11); Aspartate Aminotransferase 120 U/L (13-39); BUN Creatinine Ratio 15.5 (10-20); Bilirubin,Total 8.5 mg/dl (0.2-1.0); Blood Urea Nitrogen 9 mg/dl (6-23); Calcium 7.7 mg/dl (8.6-10.3); Carbon Dioxide 30 mmol/L (21-32); Chloride 85 mmol/L (98-107); Creatinine Clr Calc Pharmacy 121.9 ml/min; Est GFR (Non-African American) 115.6 ml/min; Globulin 2.9 gm/dl (2.5-4.0); Glucose 91 mg/dl (70-99(Fasting)); HDL Cholesterol 11 mg/dl; Iron 153 mcg/dl (35-175); Magnesium 1.7 mg/dl (1.7-2.4); Phosphorus 2.9 mg/dl (2.5-4.9); Potassium 3.2 mmol/L (3.5-5.1); Sodium 122 mmol/L (136-145); Total Protein 6.1 gm/dl (6.0-8.3); Transferrin 128 mg/dl (200-360); Triglycerides 73 mg/dl (0-150); VLDL Cholesterol 15 mg/dl (0-30)
[2023-09-13 07:50] LABS: INR 1.6 (0.9-1.1); Prothrombin Time 17.5 Seconds (9.0-12.0)
[2023-09-13 07:55] LABS: Ferritin 212.9 ng/ml (8-388)
[2023-09-13 08:01] LABS: Hematocrit (blood only) 26.3 % (42.0-52.0); Mean Corpuscular Hemoglobin 32.7 pg (25.0-34.0); Mean Corpuscular Volume 85.9 fL (80.0-100.0); Mean Platelet Volume 10.3 fL (9.4-12.4); Platelet Count 191 K/uL (130-400); RDW Coefficient of Variation 24.8 % (11.5-14.5); RDW Standard Deviation 74.3 fL (36.4-46.3); Red Blood Count 3.06 M/uL (4.70-6.10); White Blood Count 11.02 K/ul (4.8-10.8)
[2023-09-13 08:02] LABS: Anisocytosis Present; Basophils # (auto) 0.12 K/uL (0.00-0.20); Basophils % (auto) 1.1 %; Eosinophils # (auto) 0.17 K/uL (0.00-0.50); Eosinophils % (auto) 1.5 %; Immature Granulocytes # (auto) 0.12 K/uL (0.01-0.20); Immature Granulocytes % (auto) 1.1 %; Lymphocytes # (auto) 1.76 K/uL (1.20-3.40); Monocytes # (auto) 1.62 K/uL (0.11-0.59); Monocytes % (auto) 14.7 %; Neutrophils # (auto) 7.23 K/uL (1.40-6.50); Neutrophils % (auto) 65.6 %; Target Cells 2+
--- NOTE | 2023-09-13 08:04 | Hospitalist Progress Note ---
Date of Service September 13, 2023 Assessment & Plan (1) Decompensated hepatic cirrhosis: (2) Alcoholism: (3) Anemia: (4) Hyponatremia: (5) Hyperbilirubinemia: (6) Transaminitis: (7) Hypokalemia: Plan Mr. Cho is a 53-year-old male who has a prior past medical history of hyp ertension and alcohol dependence who was admitted on 09/12 for new onset decompensated liver cirrhosis. Prior to admission, patient noted increase in abdominal swelling over last 3 weeks, finally prompting presentation. #SIRS - tachycardia, leukocytosis Likely iso of decompensated cirrhosis No infectious etiology elucidated at this time #Transaminitis c/f EtOH hepatitis #Cirrhosis 2/2 likely EtOH, decompensated #Jaundice Tbili 7.5, AST 131, ALT 54, ALP 108 MRCP with large amount of ascites, sludge, cirrhotic liver Doppler negative for PVT - No known hx history of cirrhosis - MELD-Na: 19 on admission, 28 today - No prior EGD/c-scope - PSE: Denies h/o HE, no evidence of HE on exam, ctm - Ascites: c/w [id number], lasix IV 40mg TID -Consult IR for paracentesis for SBP r/o - EV: No evidence of GIB presently, close monitoring - HRS: Cr at baseline - Daily CMP + INR to calculate MELD; low Na diet -Follow up KARLEE, AMA, ASMA, ceruloplasmin labs -Acute hep panel pending - GI consult -Plan for OP EGD/C-scope -Hepatology follow up -NAC today per GI Hyponatremia, hypervolemic suspect more of a chronic picture Discussed with nephrology who recommends IV Lasix Lasix [address] Barr catheter for strict I's and O's urine osm, urine na ordered, serum osm 268 Repeat BMP now and at 2200 to prevent overcorrection FR to 1500ml Hypokalemia Replace Check mag and Phos as well Alcoholism pt reports 2 beers/daily for years last drink yesterday, 1 beer, hasn't felt well enough to drink awss scale Daily thiamine and folic acid Anemia Admitting hemoglobin 10.7, no signs of bleeding Place on PPI PID anemia panel in am. DVT ppx: SCDS for now, recommend chemical prophylaxis after paracentesis performed FULL CODE PCP: Pt previously followed Dr. Lee years ago; however has not seen a Pro vider in many years Dispo: admit to PCU Admission and Anticipated Discharge Date Admission Date: September 12, 2023 Subjective No acute events overnight Reports he drinks only beer--1-2 every day, denies any prior substance use, blood transfusions, or tattoos/international travel Reports feeling overwhelmed with all the information, but denies nausea, vomiting, or acute concerns at this time Physical Exam Constitutional: WD/WN, vitals as above Respiratory: normal respiratory effort, lungs clear to auscultation Cardiovascular: tachycardic, BLE edema 2+ Gastrointestinal (Abdomen): diffuse protuberant abdomen, fluid shift Skin: diffuse jaundice Results & Data Results & Data Vital Signs (Past 12 Hours) Vital Signs Temp Pulse Pulse Resp BP Pulse Ox O2 Del Method 09/13/23 03:44 36.9 C 106 H 18 125/75 95 Room Air 09/12/23 23:37 108 H 09/12/23 21:51 37.0 C 111 H 19 128/81 94 Room Air 09/12/23 20:15 Room Air Laboratory Results Short CBC 09/13/23 Range/Units 06:14 WBC 11.02 H (4.8-10.8) K/ul Hgb 10.0 L (14.0-18.0) g/dl Hct 26.3 L (42.0-52.0) % Plt Count 191 (130-400) K/uL BMP 09/12/23 09/12/23 09/13/23 19:45 22:56 06:14 Sodium 121 L 121 L 122 L Potassium 3.2 L 3.1 L 3.2 L Chloride 84 L 85 L 85 L Carbon Dioxide 26 28 30 BUN 10 9 9 Creatinine 0.63 0.66 0.58 L Glucose 100 H 103 H 91 Calcium 8.1 L 7.8 L 7.7 L Liver Function 09/13/23 Range/Units 06:14 Total Bilirubin 8.5 H (0.2-1.0) mg/dl AST 120 H (13-39) U/L ALT 49 (7-52) U/L Alkaline Phosphatase 93 (34-104) U/L Albumin 3.2 L (3.4-5.0) gm/dl Urine 09/12/23 Range/Units 20:40 Urine Color [place] Urine Appearance Clear (Clear) Urine pH 6.0 (4.5-7.5) Ur Specific [place] > 1.045 H (1.000-1.030) Urine Protein 1+ H (Negative) Urine Glucose (UA) Negative (Negative) Medications Administered Home Medications Medication Instructions Recorded Confirmed Last Taken bismuth subsalicylate 262 mg/15 mL 524 mg PO QID PRN .GI-UPSET/PAIN 09/12/23 09/12/23 Unknown oral suspension (Pepto-Bismol) Active Medications Generic Name Dose Route Start Last Admin Trade Name Freq PRN Reason Stop Dose Admin Folic Acid 1 mg 09/13/23 09:00 09/13/23 09:44 Folic Acid 1 Mg Tab PO 10/13/23 08:59 1 mg QAM ENDY Administration Furosemide 40 mg 09/13/23 05:00 09/13/23 12:59 Furosemide 40 Mg/4 Ml Vial IV 10/13/23 04:59 40 mg TIDM ENDY Administration Pantoprazole Sodium 40 mg 09/12/23 21:00 09/13/23 09:43 Pantoprazole 40 Mg Tab PO 10/12/23 20:59 40 mg BID ENDY Administration Potassium Chloride 20 meq 09/12/23 21:00 09/13/23 14:24 Potassium Chloride Crtab 20 Meq Tabcr PO 10/12/23 20:59 20 meq TID ENDY Administration Spironolactone 100 mg 09/13/23 09:00 09/13/23 09:43 Spironolactone 100 Mg Tab PO 10/13/23 08:59 100 mg QAM ENDY Administration Thiamine HCl 100 mg 09/13/23 09:00 09/13/23 09:44 Thiamine Hcl 100 Mg Tab PO 10/13/23 08:59 100 mg QAM ENDY Administration (3) Anemia Anemia type: unspecified type Qualified Code(s): D64.9 - Anemia, unspecified
--- NOTE | 2023-09-13 09:25 | Gastrointestinal Consultation ---
Date of Consultation September 13, 2023 Assessment & Plan (1) Decompensated hepatic cirrhosis: 53 year old male with history of HTN and ETOH abuse admitted with abdominal ascites, imaging concerning for cirrhotic appearing liver, MELD 28, DF 33.8. He is awake, alert and oriented without any signs of hepatic encephalopathy Ascites/Edema - Please arrange diagnostic and therapeutic paracentesis - Send fluid for cell count, culture, protein, albumin and cytology - Albumin 25% 25 G before and after - No more than 7L off - Continue Lasix 40 mg once daily - Continue Aldactone 100 mg once daily - Low NA diet, less than 2G of sodium daily Elevated LFTs, suspected ETOH hepatitis - CT, Portal Vein US and MRCP without acute findings - TBili 7.5 --> 8.5 - INR 1.5 --> 1.6 - DF 33.8 - Start NAC now - If infectious workup is negative w/o sign of SBP, recommend treating with prednisolone - Serology - KARLEE, AMA, ASMA, ceruloplasmin pending - Acute hep pending Cirrhosis Management - OP EGD/Colonoscopy - ETOH cessation - No NSAIDs - Less than 2g of Tylenol containing products if using - MELD labs and HCC screening every 6 months - Established with hepatology as OP - Screen for Hep A and Hep B immunity Thank you for allowing us to participate in the care of this patient. Please call with any acute changes, questions or concerns. Please see addendum below with additional recommendation from my supervising physician. Supervising Physician Co-Signing Physician Notes agree with pe and plan as documented. Significant ascites. etoh cirrhosis d/w ascites and now concerns for alcoholic hepatitis. rule out infection. NAC for alcoholic hepatitis. MRCP has ruled out biliary pathology as source for elevated bilirubin. High meld currently but with presumed infectious treatment and or alcoholic hepatititis treatment, meld will likely decrease. Full infectious work-up is recommended. Agree with nac, and abx if diagnostic work-up indicates. Strict ethanol cessation. History of Present Illness Reason for Consultation: decompensated cirrhosis Requesting Physician: Meena Attending Physician: Poonam Robledo MD History of Present Illness 53 year old male with history of ETOH abuse and HTN admitted through the ED with abd pain - GI asked to evaluate for cirrhosis. Pt was seen and evaluated, chart reviewed. He notes that he has been using ETOH daily for about 2-3 years but report this has been 1-2 beers. He denies any additional intake to me. He suggest for the last month or so he has had some abd distention, bloating, fullness and cramping. The cramping is sharp, severe when it occurs. He denies nausea/vomiting, diarrhea/constipation. No black or bloody stools. No new medications Denies herbal supplements No IV/IN drug use Reports 1-2 beers daily for many years MELD 28 DF 33.8, DF over 32 has a poor prognosis and may benefit from glucocorticoid therapy MRCP 2023: Large amount of ascites. Cirrhotic liver. Hepatomegaly. Heterogeneity of the liver without discrete lesion. Although evaluation is limited without IV contrast. Fluid fluid level in the gallbladder may represent sludge. No biliary dilatation. CTAP 2023: Cirrhotic liver with evidence for portal hypertension and a moderate amount of ascites. Heterogeneous enhancement throughout the liver which is likely due to the patient's cirrhosis, small regenerative nodules, areas of fatty change. An underlying multifocal HCC would be difficult to exclude a considered less likely. Therefore, recommend correlate with AFP for further evaluation. Colonic diverticulosis. No evidence for acute diverticulitis. No bowel wall thickening or obstruction. Portal Vein US 2023: Nondiagnostic evaluation of the hepatic vessels due to overlying bowel gas/suboptimal penetration. Cirrhosis. Hepatic steatosis. Moderate perihepatic ascites. Allergies Allergy/AdvReac Type Severity Reaction Status Date / Time No Known Allergies Allergy Unverified 09/12/23 15:48 Home Medications Medication Instructions Recorded Confirmed Type bismuth subsalicylate 262 mg/15 mL 524 mg PO QID PRN .GI-UPSET/PAIN 09/12/23 09/12/23 History oral suspension (Pepto-Bismol) Patient History Medical History Hypertension Surgical History Hx of hernia repair Family History Denies family history of Diabetes Coronary heart disease Kidney disease Myocardial infarction Cancer Hypertension Stroke Social History Smoking Status: Never smoker Second Hand Exposure: No; Do You Dip or Chew Tobacco: Yes (on occasion); Tobacco Cessation Education Requested by Patient: No Hx Alcohol Use: Yes Alcohol type: beer Hx Substance Use: No Preferred Language: Cameroonian Communication Ability: Effective Metal Stamper Required: No Beliefs That Will Affect Care: None Current Living Situation: Alone Other Information That Helps Us Care for You: No Feels Safe at Home: Yes Safety Concerns: Feels Safe At This Time Assistive Devices: None Review of Systems Review of Systems: All systems reviewed & are unremarkable except as noted in HPI & below Physical Exam Constitutional: WD/WN, vitals as above Respiratory: normal respiratory effort, lungs clear to auscultation Cardiovascular: Rate/Rhythm: regular rate and regular rhythm + lower extremity edema Gastrointestinal (Abdomen): Percussion/Palpation: + abdomen tender, abdomen soft and + ascites; no guarding and abdomen not rigid Skin: + jaundiice Results & Data Vital Signs (Past 12 Hours) Vital Signs Temp Pulse Pulse Resp BP Pulse Ox O2 Del Method 09/13/23 07:46 36.8 C 102 H 21 121/76 96 Room Air 09/13/23 03:44 36.9 C 106 H 18 125/75 95 Room Air 09/12/23 23:37 108 H 09/12/23 21:51 37.0 C 111 H 19 128/81 94 Room Air Laboratory Results 09/13/23 09/12/23 09/12/23 Range/Units 06:14 22:56 20:40 WBC 11.02 H (4.8-10.8) K/ul RBC 3.06 L (4.70-6.10) M/uL Hgb 10.0 L (14.0-18.0) g/dl Hct 26.3 L (42.0-52.0) % MCV 85.9 (80.0-100.0) fL MCH 32.7 (25.0-34.0) pg MCHC 38.0 H (32.0-36.0) g/dL RDW Std Deviation 74.3 H (36.4-46.3) fL RDW Coeff of Issac 24.8 H (11.5-14.5) % Plt Count 191 (130-400) K/uL MPV 10.3 (9.4-12.4) fL Immature Gran % (Auto) 1.1 % Neut % (Auto) 65.6 % Lymph % (Auto) 16.0 % [place] % (Auto) 14.7 % Eos % (Auto) 1.5 % Baso % (Auto) 1.1 % Neut # (Auto) 7.23 H (1.40-6.50) K/uL Lymph # (Auto) 1.76 (1.20-3.40) K/uL [place] # (Auto) 1.62 H (0.11-0.59) K/uL Eos # (Auto) 0.17 (0.00-0.50) K/uL Baso # (Auto) 0.12 (0.00-0.20) K/uL Immature Gran # (Auto) 0.12 (0.01-0.20) K/uL Polychromasia Anisocytosis Present Target Cells 2+ PT 17.5 H (9.0-12.0) Seconds INR 1.6 H (0.9-1.1) Sodium 122 L 121 L (136-145) mmol/L Potassium 3.2 L 3.1 L (3.5-5.1) mmol/L Chloride 85 L 85 L (98-107) mmol/L Carbon Dioxide 30 28 (21-32) mmol/L Anion Gap 7 8 (3-11) BUN 9 9 (6-23) mg/dl Creatinine 0.58 L 0.66 (0.6-1.4) mg/dl Est Cr Clr Drug Dosing 121.9 132.1 ml/min Est GFR ( Amer) 134.0 127.0 ml/min Est GFR (Non-Af Amer) 115.6 109.6 ml/min BUN/Creatinine Ratio 15.5 13.6 (10-20) Glucose 91 103 H (70-99(Fasting)) mg/dl Estimat Average Glucose 80 mg/dl Hemoglobin A1c 4.4 L (4.5-5.6) % Osmolality (280-300) mOsm/kg Calcium 7.7 L 7.8 L (8.6-10.3) mg/dl Phosphorus 2.9 (2.5-4.9) mg/dl Magnesium 1.7 (1.7-2.4) mg/dl Iron 153 (35-175) mcg/dl Transferrin 128 L (200-360) mg/dl Ferritin 212.9 (8-388) ng/ml Total Bilirubin 8.5 H (0.2-1.0) mg/dl AST 120 H (13-39) U/L ALT 49 (7-52) U/L Alkaline Phosphatase 93 (34-104) U/L Ammonia (18-72) umol/L Total Protein 6.1 (6.0-8.3) gm/dl Albumin 3.2 L (3.4-5.0) gm/dl Globulin 2.9 (2.5-4.0) gm/dl Albumin/Globulin Ratio 1.1 (0.9-2) Ceruloplasmin Triglycerides 73 (0-150) mg/dl Cholesterol TNP LDL Cholesterol, Calc TNP VLDL Cholesterol, Calc 15 (0-30) mg/dl HDL Cholesterol 11 mg/dl Cholesterol/HDL Ratio TNP Lipase (11-82) U/L Tumor Marker AFP Vitamin B12 > 1500 H (180-914) pg/ml Folate 4.91 L (>5.38) ng/ml Procalcitonin (0-0.5) ng/ml Urine Color [place] Urine Appearance Clear (Clear) Urine pH 6.0 (4.5-7.5) Ur Specific [place] > 1.045 H (1.000-1.030) Urine Protein 1+ H (Negative) Urine Glucose (UA) Negative (Negative) Urine Ketones Negative (Negative) Urine Blood Negative (Negative) Urine Nitrite Positive A (Negative) Urine Bilirubin 2+ H (Negative) Urine Urobilinogen Positive H (Negative) Ur Leukocyte Esterase 1+ H (Negative) Urine WBC (Auto) 5-10 H (0-5) /hpf Urine RBC (Auto) 5-10 H (0-4) /hpf U Hyaline Cast (Auto) 1-5 (0-5) /lpf U Epithel Cells (Auto) 20-30 H (0-5) /lpf Urine Bacteria (Auto) Negative (Negative) Urine Mucus Present A (None Prsent) Urine Osmolality 745 (500-800) mOsm/kg Ur Random Sodium < 10 mmol/L Ethyl Alcohol mg/dL (<10.0) mg/dl KARLEE Screen Actin IgG Antibody Hepatitis A IgM Ab Hep Bs Antigen Hep Bs Ag Confirmation Hep B Core IgM Ab Hepatitis C Ab (EIA) 09/12/23 09/12/23 Range/Units 19:45 13:15 WBC 12.31 H (4.8-10.8) K/ul RBC 3.19 L (4.70-6.10) M/uL Hgb 10.6 L (14.0-18.0) g/dl Hct 28.1 L (42.0-52.0) % MCV 88.1 (80.0-100.0) fL MCH 33.2 (25.0-34.0) pg MCHC 37.7 H (32.0-36.0) g/dL RDW Std Deviation 74.5 H (36.4-46.3) fL RDW Coeff of Issac 23.9 H (11.5-14.5) % Plt Count 210 (130-400) K/uL MPV 10.0 (9.4-12.4) fL Immature Gran % (Auto) 1.3 % Neut % (Auto) 70.1 % Lymph % (Auto) 12.6 % [place] % (Auto) 14.4 % Eos % (Auto) 0.6 % Baso % (Auto) 1.0 % Neut # (Auto) 8.63 H (1.40-6.50) K/uL Lymph # (Auto) 1.55 (1.20-3.40) K/uL [place] # (Auto) 1.77 H (0.11-0.59) K/uL Eos # (Auto) 0.08 (0.00-0.50) K/uL Baso # (Auto) 0.12 (0.00-0.20) K/uL Immature Gran # (Auto) 0.16 (0.01-0.20) K/uL Polychromasia 1+ Anisocytosis Present Target Cells 2+ PT 16.0 H (9.0-12.0) Seconds INR 1.5 H (0.9-1.1) Sodium 121 L 119 L* (136-145) mmol/L Potassium 3.2 L 3.3 L (3.5-5.1) mmol/L Chloride 84 L 84 L (98-107) mmol/L Carbon Dioxide 26 23 (21-32) mmol/L Anion Gap 11 12 H (3-11) BUN 10 10 (6-23) mg/dl Creatinine 0.63 0.59 L (0.6-1.4) mg/dl Est Cr Clr Drug Dosing 138.4 147.8 ml/min Est GFR ( Amer) 129.5 133.0 ml/min Est GFR (Non-Af Amer) 111.7 114.8 ml/min BUN/Creatinine Ratio 15.9 16.9 (10-20) Glucose 100 H 122 H (70-99(Fasting)) mg/dl Estimat Average Glucose mg/dl Hemoglobin A1c (4.5-5.6) % Osmolality 268 L (280-300) mOsm/kg Calcium 8.1 L 8.0 L (8.6-10.3) mg/dl Phosphorus 2.2 L (2.5-4.9) mg/dl Magnesium 2.0 (1.7-2.4) mg/dl Iron (35-175) mcg/dl Transferrin (200-360) mg/dl Ferritin (8-388) ng/ml Total Bilirubin 7.5 H (0.2-1.0) mg/dl AST 131 H (13-39) U/L ALT 56 H (7-52) U/L Alkaline Phosphatase 108 H (34-104) U/L Ammonia 20.0 (18-72) umol/L Total Protein 6.6 (6.0-8.3) gm/dl Albumin 3.0 L (3.4-5.0) gm/dl Globulin 3.6 (2.5-4.0) gm/dl Albumin/Globulin Ratio 0.8 L (0.9-2) Ceruloplasmin Pending Triglycerides (0-150) mg/dl Cholesterol LDL Cholesterol, Calc VLDL Cholesterol, Calc (0-30) mg/dl HDL Cholesterol mg/dl Cholesterol/HDL Ratio Lipase 68 (11-82) U/L Tumor Marker AFP Pending Vitamin B12 (180-914) pg/ml Folate (>5.38) ng/ml Procalcitonin 0.33 (0-0.5) ng/ml Urine Color Urine Appearance (Clear) Urine pH (4.5-7.5) Ur Specific [place] (1.000-1.030) Urine Protein (Negative) Urine Glucose (UA) (Negative) Urine Ketones (Negative) Urine Blood (Negative) Urine Nitrite (Negative) Urine Bilirubin (Negative) Urine Urobilinogen (Negative) Ur Leukocyte Esterase (Negative) Urine WBC (Auto) (0-5) /hpf Urine RBC (Auto) (0-4) /hpf U Hyaline Cast (Auto) (0-5) /lpf U Epithel Cells (Auto) (0-5) /lpf Urine Bacteria (Auto) (Negative) Urine Mucus (None Prsent) Urine Osmolality (500-800) mOsm/kg Ur Random Sodium mmol/L Ethyl Alcohol mg/dL 11.4 H (<10.0) mg/dl KARLEE Screen Pending Actin IgG Antibody Pending Hepatitis A IgM Ab Pending Hep Bs Antigen Pending Hep Bs Ag Confirmation Pending Hep B Core IgM Ab Pending Hepatitis C Ab (EIA) Pending
[2023-09-13] MEDS: POTASSIUM CHLORIDE CRTAB 20 MEQ TABCR PO STA (09:41)
[2023-09-13] MEDS: SPIRONOLACTONE 100 MG TAB PO SCH (09:43)
[2023-09-13] MEDS: THIAMINE HCL 100 MG TAB PO SCH (09:44)
[2023-09-13] MEDS: FOLIC ACID 1 MG TAB PO SCH (09:44)
--- NOTE | 2023-09-13 10:35 | Nephrology Consultation ---
Date of Consultation September 13, 2023 Assessment & Plan (1) Hyponatremia: Sec to Hypervolemic Hyponatremia with decom Liver Cirrhosis. newly Diagnosed with this. Continue Current iv lasix 40 iv q8hr. na is rising slowly and correct rate. renal function normal. K is low so will raise the Supplement dose. Also use aldactone. (2) Decompensated hepatic cirrhosis: Full workup is being done for new dx. History of Present Illness Reason for Consultation: Hyponatremia Attending Physician: Poonam Robledo MD History of Present Illness 53/M with HTN, Alcohol use and never really goes to doctors Came to ED with Abd distension. Now Dxed with Cirrhosis and aascites and Hyponatremia. Hilg MELD score. GI did seen the patient. He denies any recent illness, fever, chills, sweats, lightheadedness, dizziness, shortness breath at rest or with exertion, chest pain, hemoptysis, nausea, vomiting, dysuria, increased urgency or frequency with urination. In ED patient remained hemodynamically stable and slightly tachycardic. Lab work showed leukocytosis 12.31k, anemia with a hemoglobin of 10.6 and 28.1, sodium 119, elevated total bilirubin 7.5, AST 131, ALT 56, alkaline phosphatase [address] abdomen pelvis with evidence of cirrhosis, moderate ascites And concern for heterogenous enhancement throughout the liver with areas of fatty change. I was consulted and i did advice to give Iv lasix for Hypervolemic Hyponatremia. about 1500 ml urine--no andrea. na up a bit to 122 and K is low. Rate of correction is fine. ROS---See HPI. 12 Systems reviewed and is otherwise negative exam: Physical Exam Physical Exam: Constitutional: Awake and alert. No distress Head: Normocephalic, Atraumatic, icteric sclerae . Mm moist Neck: trachea midline, no thyromegaly normal visual inspection Respiratory: normal respiratory effort, lungs clear to auscultation, no wheeze, rales, rhonchi. Normal insp/exp effort, no accessory muscle use Cardiovascular: RRR, no murmur, +2 lower extremity edema, no erythema Vessels: no JVD or carotid bruit Chest: normal inspection of chest Abdomen: Distended abdomen, tense, Ascites ++ Musculoskeletal: no cyanosis or clubbing, extremities motor strength 5/5 Skin: Jaundice, no rashes, warm and dry normal turgor Neurologic: PERRL, EOMI, accommodation nl, no face palsy, no dysarthria CN's II-XI intact bilaterally and moves all extremities Psychiatric: A+Ox3, euthymic affect Allergies Allergy/AdvReac Type Severity Reaction Status Date / Time No Known Allergies Allergy Unverified 09/12/23 15:48 Home Medications Medication Instructions Recorded Confirmed Type bismuth subsalicylate 262 mg/15 mL 524 mg PO QID PRN .GI-UPSET/PAIN 09/12/23 09/12/23 History oral suspension (Pepto-Bismol) Patient History Medical History Hypertension Surgical History Hx of hernia repair Family History Denies family history of Diabetes Coronary heart disease Kidney disease Myocardial infarction Cancer Hypertension Stroke Social History Smoking Status: Never smoker Second Hand Exposure: No; Do You Dip or Chew Tobacco: Yes (on occasion); Tobacco Cessation Education Requested by Patient: No Hx Alcohol Use: Yes Alcohol type: beer Hx Substance Use: No Preferred Language: Citizen Of [place] Communication Ability: Effective Clinical Quality Analyst Required: No Beliefs That Will Affect Care: None Current Living Situation: Alone Other Information That Helps Us Care for You: No Feels Safe at Home: Yes Safety Concerns: Feels Safe At This Time Assistive Devices: None Results & Data Vital Signs (Past 12 Hours) Vital Signs Temp Pulse Pulse Resp BP Pulse Ox O2 Del Method 09/13/23 07:46 36.8 C 102 H 21 121/76 96 Room Air 09/13/23 03:44 36.9 C 106 H 18 125/75 95 Room Air 09/12/23 23:37 108 H
[2023-09-13 13:12] LABS: Albumin Peritoneal Fluid < 1.5 gm/dl
[2023-09-13 13:18] LABS: Glucose Peritoneal Fluid 101 mg/dl; LDH Peritoneal Fluid 38 U/L; Total Protein Peritoneal Fluid < 3.0 gm/dl
--- NOTE | 2023-09-13 13:51 | Ultrasound Report ---
Ultrasound-guided paracentesis INDICATION: Ascites PROCEDURE: Procedure and risks were explained. Informed consent was obtained. A final timeout was com pleted. The abdomen was prepped and draped in sterile fashion. 1% buffered lidocaine was utilized for skin anesthesia. Utilizing ultrasound guidance, a 5 [place] safety centesis catheter was advanced into the left lower q uadrant pocket of ascites. Ultrasound images were obtained. 2.75 liters were removed and 1 L was sent to the lab for analysis. The catheter was removed and Band-Aid applied. The patient tolerated the pr ocedure well. Vital signs will be monitored postprocedure. IMPRESSION: Paracentesis as above. Performed, dictated, and signed by Joshua Mora PA-C; to be co-signed by Dr. Abundio Mendoza. Electronically signed by: Abundio Mendoza M.D. 09/13/2023 1:55 PM
[2023-09-13 14:26] LABS: Appearance Peritoneal Fluid Clear; Basophils, Fluid 1 %; Color Peritoneal Fluid Yellow; Lymphocytes, Fluid 47 %; Mono,Macrophage,Mesothelial 33 %; Neutrophils, Fluid 19 %; RBC Peritoneal Fluid Auto < 2000 /uL; WBC Peritoneal Fluid Auto 154 /ul (0-300)
[2023-09-13 17:42] LABS: BUN Creatinine Ratio 13.6 (10-20); Calcium 7.5 mg/dl (8.6-10.3); Creatinine Clr Calc Pharmacy 80.4 ml/min; Est GFR (African American) 112.9 ml/min; Est GFR (Non-African American) 97.4 ml/min; Potassium 3.7 mmol/L (3.5-5.1)
[2023-09-13] MEDS ORDERED: [UNRECOGNIZED DRUG - REMARK] IV STA (18:10)
[2023-09-13] MEDS: ACETYLCYSTEINE IV ONE (19:09)
[2023-09-13] MEDS: DEXTROSE 5% IV ONE (19:09)
[2023-09-13] MEDS ORDERED: Nursing to Pharmacy Communication SCH (19:15)
[2023-09-13] MEDS: ACETYLCYSTEINE IV SCH (20:37)
[2023-09-13] MEDS: DEXTROSE 5% IV SCH (20:37)
[2023-09-14] MEDS: ACETYLCYSTEINE IV SCH (00:57)
[2023-09-14] MEDS: DEXTROSE 5% IV SCH (00:57)
[2023-09-14 09:22] LABS: Albumin Level 2.8 gm/dl (3.4-5.0); BUN Creatinine Ratio 15.8 (10-20); Bilirubin,Total 9.1 mg/dl (0.2-1.0); Calcium 7.4 mg/dl (8.6-10.3); Creatinine Clr Calc Pharmacy 150.7 ml/min; Est GFR (African American) 134.9 ml/min; Est GFR (Non-African American) 116.4 ml/min; Globulin 2.7 gm/dl (2.5-4.0); Magnesium 1.5 mg/dl (1.7-2.4); Phosphorus 1.6 mg/dl (2.5-4.9); Potassium 2.9 mmol/L (3.5-5.1); Total Protein 5.5 gm/dl (6.0-8.3)
[2023-09-14 09:25] LABS: Prothrombin Time 20.5 Seconds (9.0-12.0)
--- NOTE | 2023-09-14 11:39 | Hospitalist Progress Note ---
Date of Service September 14, 2023 Assessment & Plan (1) Decompensated hepatic cirrhosis: (2) Alcoholism: (3) Anemia: (4) Hyponatremia: (5) Hyperbilirubinemia: (6) Transaminitis: (7) Hypokalemia: Plan Mr. Cho is a 53-year-old male who has a prior past medical history of hyp ertension and alcohol dependence who was admitted on 09/12 for new onset decompensated liver cirrhosis. Prior to admission, patient noted increase in abdominal swelling over last 3 weeks, finally prompting presentation. #SIRS - tachycardia, leukocytosis Likely iso of decompensated cirrhosis No infectious etiology elucidated at this time #Transaminitis c/f EtOH hepatitis #Cirrhosis 2/2 likely EtOH, decompensated #Jaundice Tbili 7.5, AST 131, ALT 54, ALP 108 MRCP with large amount of ascites, sludge, cirrhotic liver Doppler negative for PVT - No known hx history of cirrhosis - MELD-Na: 19 on admission, MELD 30 - No prior EGD/c-scope - PSE: Denies h/o HE, no evidence of HE on exam, ctm - Ascites: c/w [id number], lasix IV 40mg TID -s/p IR paracentesis fluid studies not consistent with SBP , removed 2.75 liters - EV: No evidence of GIB presently, close monitoring - HRS: Cr at baseline - Daily CMP + INR to calculate MELD; low Na diet -Follow up KARLEE, AMA, ASMA, ceruloplasmin labs -Acute hep panel pending - GI consult -Plan for OP EGD/C-scope -Hepatology follow up -NAC today per GI -40mg IV methylprednisone daily #Hyponatremia, hypervolemic Discussed with nephrology who recommends IV Lasix Corrected from 119 to 122 Lasix [address] Barr catheter for strict I's and O's Potassium supplementation adjusted per Nephrology with lasix regimen FR to 1500ml #folate deficiency -Replace #Hypokalemia Replace Check mag and Phos as well #Alcohol dependence pt reports 2 beers/daily for years last drink yesterday, 1 beer, hasn't felt well enough to drink awss scale Daily thiamine and folic acid #Normocytic Anemia Admitting hemoglobin 10.7, no signs of bleeding Place on PPI PID likely iso chronic illness -Trend CBC transfuse < 7 DVT ppx: SCDS for now, recommend chemical prophylaxis in am upon CBC repeat FULL CODE PCP: Pt previously followed Dr. Lee years ago; however has not seen a Provider in many years Dispo: admit to PCU Admission and Anticipated Discharge Date Admission Date: September 12, 2023 Subjective No acute events overnight States abdomen feels much improved Denies any nausea, vomiting Reports bowel movement day prior Physical Exam Constitutional: WD/WN, vitals as above Cardiovascular: tachycardic Gastrointestinal (Abdomen): protuberant, but soft than day prior, no tenderness noted Skin: ++jaundice Neurologic: PERRL, EOMI, accommodation nl, no face palsy, no dysarthria Results & Data Results & Data Vital Signs (Past 12 Hours) Vital Signs Temp Pulse Pulse Resp BP Pulse Ox O2 Del Method 09/14/23 07:34 37.2 C 97 H 18 111/69 97 Room Air 09/14/23 07:28 102 H 09/14/23 03:39 37.3 C 102 H 16 124/72 98 Room Air 09/14/23 00:27 107 H Laboratory Results [facility] 09/13/23 09/14/23 17:10 08:39 Sodium 122 L 121 L Potassium 3.7 2.9 L D Chloride 86 L 85 L Carbon Dioxide 30 29 BUN 12 9 Creatinine 0.88 D 0.57 L D Glucose 132 H 134 H Calcium 7.5 L 7.4 L Liver Function 09/14/23 Range/Units 08:39 Total Bilirubin 9.1 H (0.2-1.0) mg/dl AST 87 H (13-39) U/L ALT 41 (7-52) U/L Alkaline Phosphatase 68 (34-104) U/L Albumin 2.8 L (3.4-5.0) gm/dl Medications Administered Home Medications Medication Instructions Recorded Confirmed Last Taken bismuth subsalicylate 262 mg/15 mL 524 mg PO QID PRN .GI-UPSET/PAIN 09/12/23 09/12/23 Unknown oral suspension (Pepto-Bismol) Active Medications Generic Name Dose Route Start Last Admin Trade Name Freq PRN Reason Stop Dose Admin Folic Acid 1 mg 09/13/23 09:00 09/14/23 09:18 Folic Acid 1 Mg Tab PO 10/13/23 08:59 1 mg QAM ENDY Administration Furosemide 40 mg 09/13/23 05:00 03/16/24 09:14 Furosemide 40 Mg/4 Ml Vial IV 10/13/23 04:59 40 mg TIDM ENDY Administration Pantoprazole Sodium 40 mg 09/12/23 21:00 09/14/23 09:17 Pantoprazole 40 Mg Tab PO 10/12/23 20:59 40 mg BID ENDY Administration Spironolactone 100 mg 09/13/23 09:00 09/14/23 09:18 Spironolactone 100 Mg Tab PO 10/13/23 08:59 100 mg QAM ENDY Administration Thiamine HCl 100 mg 09/13/23 09:00 09/14/23 09:18 Thiamine Hcl 100 Mg Tab PO 10/13/23 08:59 100 mg QAM ENDY Administration (3) Anemia Anemia type: unspecified type Qualified Code(s): D64.9 - Anemia, unspecified
--- NOTE | 2023-09-14 11:49 | Nephrology Progress Note ---
Date of Service September 14, 2023 Assessment & Plan (1) Hyponatremia: Plan: Sec to Hypervolemic Hyponatremia with decom Liver Cirrhosis. newly Diagnosed with this. Continue Current iv lasix 40 iv q8hr. -Will add urea 15 g twice daily renal function normal. K is low. Will increase potassium chloride 40 mill equivalents 3 times daily. (2) Decompensated hepatic cirrhosis: Plan: Patient with decompensated cirrhosis with multiple electrolyte abnormalities. Phosphorus is also low. Will give K-Phos 1 tablet 3 times daily. Admission and Anticipated Discharge Date Admission Date: September 12, 2023 Subjective Seen for hyponatremia. Patient with liver cirrhosis. He had paracentesis yesterday. He feels better today. Sodium still low at 121. Also has hypokalemia. Review of Systems 2 Review of Systems: All other systems were reviewed and negative except as noted in HPI Physical Exam 2 Physical Exam: General exam: Appears comfortable, no acute distress HEENT: Pupils are equal and reactive to light Neck: No JVD, neck is supple trachea is midline Respiratory system: Clear breath sounds bilaterally. Gastrointestinal: Abdomen is soft, non distended, non tender, bowel sounds are present CVS: Regular rate and rhythm. No murmurs, rubs or gallops Musculoskeletal: No joint or muscle tenderness Extremities: Non tender, no edema, peripheral pulses are present Neuro: Oriented, no tremors, no focal neurological deficits Skin: No rashes Results & Data Vital Signs (Past 12 Hours) Vital Signs Temp Pulse Pulse Resp BP Pulse Ox O2 Del Method 09/14/23 11:36 37.0 C 108 H 18 111/69 96 Room Air 09/14/23 07:34 37.2 C 97 H 18 111/69 97 Room Air 09/14/23 07:28 102 H 09/14/23 03:39 37.3 C 102 H 16 124/72 98 Room Air 09/14/23 00:27 107 H Laboratory Results 09/14/23 08:39 09/14/23 08:39 Phosphorus 1.6 L D Albumin 2.8 L
[2023-09-14] MEDS: MAGNESIUM SULFATE / D5W 1 GM/100 ML BAG IV SCH (11:55)
--- NOTE | 2023-09-14 12:04 | Gastroenterology Progress Note ---
Date of Service September 14, 2023 Assessment & Plan Admission and Anticipated Discharge Date Admission Date: September 12, 2023 Subjective Pt without complaints, no new events. Completed NAC PE: comfortable Abd: soft NT, + distention with flank dullness Extrem: faint resting tremor no asterixis, no edema Psych: Alert and easily conversant with fluid speech and coherent thought, mildly flat affect Labs reviewed A/P: ALcoholic liver disease Original MELD > 20 but < 50 - No prior labs; AST + ALT elevation, WBC increase and + serum EtoH level suggest Alc hep, with imaging indicating that pt likely has chronic liver disease. - Does not meet criteria for SIRS and no SBP on tap; defer abx. Will begin prednisolone and check [place] score day 4. Encouraged nutrition, discussed abstinence. - Primary SBP prophylaxis. - Renal to manage diuretics/hyponatremia. Results & Data Vital Signs (Past 12 Hours) Vital Signs Temp Pulse Pulse Resp BP Pulse Ox O2 Del Method 09/14/23 11:36 37.0 C 108 H 18 111/69 96 Room Air 09/14/23 07:34 37.2 C 97 H 18 111/69 97 Room Air 09/14/23 07:28 102 H 09/14/23 03:39 37.3 C 102 H 16 124/72 98 Room Air 09/14/23 00:27 107 H
[2023-09-14] MEDS: UREA (UREA-NA) 15 GM PACK PO SCH (12:37)
[2023-09-14] MEDS: POT PHOSPHATE MONOBASIC W/ SOD TAB PO SCH (12:38)
[2023-09-14] MEDS: POTASSIUM CHLORIDE CRTAB 20 MEQ TABCR PO SCH (14:01)
[2023-09-14 15:51] LABS: BUN Creatinine Ratio 23.5 (10-20); Calcium 7.4 mg/dl (8.6-10.3); Est GFR (African American) 114.5 ml/min; Est GFR (Non-African American) 98.8 ml/min; Potassium 3.3 mmol/L (3.5-5.1)
[2023-09-14] MEDS: CIPROFLOXACIN 500 MG TAB PO SCH (21:44)
[2023-09-15 05:58] LABS: Hematocrit (blood only) 27.8 % (42.0-52.0); Hemoglobin 10.3 g/dl (14.0-18.0); Mean Corpuscular Hemoglobin 33.1 pg (25.0-34.0); Mean Corpuscular Hgb Conc 37.1 g/dL (32.0-36.0); Mean Corpuscular Volume 89.4 fL (80.0-100.0); Mean Platelet Volume 10.4 fL (9.4-12.4); Platelet Count 180 K/uL (130-400); RDW Coefficient of Variation 24.8 % (11.5-14.5); RDW Standard Deviation 77.1 fL (36.4-46.3); Red Blood Count 3.11 M/uL (4.70-6.10); White Blood Count 10.76 K/ul (4.8-10.8)
[2023-09-15 06:13] LABS: Albumin Level 2.8 gm/dl (3.4-5.0); BUN Creatinine Ratio 35.7 (10-20); Bilirubin,Total 6.7 mg/dl (0.2-1.0); Calcium 7.6 mg/dl (8.6-10.3); Creatinine Clr Calc Pharmacy 120.1 ml/min; Globulin 2.8 gm/dl (2.5-4.0); Magnesium 2.2 mg/dl (1.7-2.4); Phosphorus 2.5 mg/dl (2.5-4.9); Potassium 3.6 mmol/L (3.5-5.1); Total Protein 5.6 gm/dl (6.0-8.3)
--- NOTE | 2023-09-15 07:42 | Hospitalist Progress Note ---
Date of Service September 15, 2023 Assessment & Plan (1) Decompensated hepatic cirrhosis: (2) Alcoholism: (3) Anemia: (4) Hyponatremia: (5) Hyperbilirubinemia: (6) Transaminitis: (7) Hypokalemia: Plan Mr. Cho is a 53-year-old male who has a prior past medical history of hyp ertension and alcohol dependence who was admitted on 09/12 for new onset decompensated liver cirrhosis. Prior to admission, patient noted increase in abdominal swelling over last 3 weeks, finally prompting presentation. #Transaminitis c/f EtOH hepatitis *improved #Cirrhosis 2/2 likely EtOH, decompensated #Jaundice Tbili 7.5, AST 131, ALT 54, ALP 108 MRCP with large amount of ascites, sludge, cirrhotic liver Doppler negative for PVT - No known hx history of cirrhosis - MELD-Na: 19 on admission, MELD 30 -> 29 - No prior EGD/c-scope - PSE: Denies h/o HE, no evidence of HE on exam, ctm - Ascites: c/w [id number], lasix IV 40mg TID -s/p IR paracentesis fluid studies not consistent with SBP , removed 2.75 liters - EV: No evidence of GIB presently, close monitoring - HRS: Cr at baseline - Daily CMP + INR to calculate MELD; low Na diet -Follow up KARLEE, AMA, ASMA, ceruloplasmin labs -Acute hep panel pending - GI consult -Plan for OP EGD/C-scope -Hepatology follow up -NAC completed 09/14/2023 -40mg IV methylprednisone daily -Cipro 500mg BID SBP ppx #Hyponatremia, hypervolemic Discussed with nephrology who recommends IV Lasix Corrected from 119 to 122->123 [address] Barr catheter for strict I's and O's Potassium supplementation adjusted per Nephrology with lasix regimen FR to 1500ml Urea per Nephrology #SIRS resolved - tachycardia, leukocytosis Likely iso of decompensated cirrhosis No infectious etiology elucidated at this time #folate deficiency -Replace #Hypokalemia Replace Check mag and Phos as well #Alcohol dependence pt reports 2 beers/daily for years last drink yesterday, 1 beer, hasn't felt well enough to drink awss scale Daily thiamine and folic acid #Normocytic Anemia Admitting hemoglobin 10.7, no signs of bleeding Place on PPI PID likely iso chronic illness -Trend CBC transfuse < 7 DVT ppx: lovenox FULL CODE PCP: Pt previously followed Dr. Lee years ago; however has not seen a Provider in many years Dispo: admit to PCU Admission and Anticipated Discharge Date Admission Date: September 12, 2023 Subjective No acute events overnight Denies nausea, vomiting, discomfort Answered questions regarding "sodium" and discussed importance of low sodium diet and fluid restriction at this time Verbalized understanding and rpeorts no acute concerns Physical Exam Constitutional: WD/WN, vitals as above Respiratory: normal respiratory effort, lungs clear to auscultation Gastrointestinal (Abdomen): remains distended, but soft in comparison to prior eval BLE much improved Neurologic: PERRL, EOMI, accommodation nl, no face palsy, no dysarthria Results & Data Results & Data Vital Signs (Past 12 Hours) Vital Signs Temp Pulse Pulse Resp BP Pulse Ox O2 Del Method 09/15/23 07:21 92 H 09/15/23 03:15 37.0 C 103 H 15 106/64 95 Room Air 09/15/23 01:17 97 H 09/14/23 22:48 37.0 C 103 H 14 102/63 95 Room Air 09/14/23 20:00 Room Air Laboratory Results Short CBC 09/15/23 Range/Units 05:16 WBC 10.76 (4.8-10.8) K/ul Hgb 10.3 L (14.0-18.0) g/dl Hct 27.8 L (42.0-52.0) % Plt Count 180 (130-400) K/uL BMP 09/14/23 09/14/23 09/15/23 08:39 15:07 05:16 Sodium 121 L 122 L 123 L Potassium 2.9 L D 3.3 L 3.6 Chloride 85 L 82 L 88 L Carbon Dioxide 29 32 32 BUN 9 20 25 H Creatinine 0.57 L D 0.85 0.70 Glucose 134 H 86 101 H Calcium 7.4 L 7.4 L 7.6 L Liver Function 09/14/23 09/15/23 Range/Units 08:39 05:16 Total Bilirubin 9.1 H 6.7 H (0.2-1.0) mg/dl AST 87 H 89 H (13-39) U/L ALT 41 42 (7-52) U/L Alkaline Phosphatase 68 79 (34-104) U/L Albumin 2.8 L 2.8 L (3.4-5.0) gm/dl Medications Administered Home Medications Medication Instructions Recorded Confirmed Last Taken bismuth subsalicylate 262 mg/15 mL 524 mg PO QID PRN .GI-UPSET/PAIN 09/12/23 09/12/23 Unknown oral suspension (Pepto-Bismol) Active Medications Generic Name Dose Route Start Last Admin Trade Name Freq PRN Reason Stop Dose Admin Ciprofloxacin 500 mg 09/14/23 21:00 09/14/23 21:44 Ciprofloxacin 500 Mg Tab PO 09/24/23 20:59 500 mg BID ENYD Administration Protocol Folic Acid 1 mg 09/13/23 09:00 09/14/23 09:18 Folic Acid 1 Mg Tab PO 10/13/23 08:59 1 mg QAM ENDY Administration Furosemide 40 mg 09/13/23 05:00 09/14/23 17:14 Furosemide 40 Mg/4 Ml Vial IV 10/13/23 04:59 40 mg TIDM ENDY Administration Pantoprazole Sodium 40 mg 09/12/23 21:00 09/14/23 19:50 Pantoprazole 40 Mg Tab PO 10/12/23 20:59 40 mg BID ENDY Administration Potassium Chloride 40 meq 09/14/23 14:00 09/14/23 19:49 Potassium Chloride Crtab 20 Meq Tabcr PO 10/14/23 13:59 40 meq TID ENDY Administration Potassium Phosphate 1 tab 09/14/23 13:00 09/14/23 19:50 Pot Phosphate Monobasic W/ Sod Tab PO 10/14/23 12:59 1 tab QID ENDY Administration Spironolactone 100 mg 09/13/23 09:00 09/14/23 09:18 Spironolactone 100 Mg Tab PO 10/13/23 08:59 100 mg QAM ENDY Administration Thiamine HCl 100 mg 09/13/23 09:00 09/14/23 09:18 Thiamine Hcl 100 Mg Tab PO 10/13/23 08:59 100 mg QAM ENDY Administration Urea 15 gm 09/14/23 12:00 09/14/23 19:49 Urea (Urea-Na) 15 Gm Pack PO 10/14/23 11:59 15 gm BID ENDY Administration (3) Anemia Anemia type: unspecified type Qualified Code(s): D64.9 - Anemia, unspecified
[2023-09-15] MEDS: methylPREDNISolone 40 MG in SYRINGE 0 ML IV SCH (08:57)
--- NOTE | 2023-09-15 11:21 | Nephrology Progress Note ---
Date of Service September 15, 2023 Assessment & Plan (1) Hyponatremia: Plan: Sec to Hypervolemic Hyponatremia with decom Liver Cirrhosis. newly Diagnosed with this. Continue Current iv lasix 40 iv q8hr. -Will continue urea 15 g twice daily -Reduce Aldactone 50 mg daily due to hyponatremia renal function normal. K is low. Will increase potassium chloride 40 mill equivalents 4 times daily. (2) Decompensated hepatic cirrhosis: Plan: Patient with decompensated cirrhosis with multiple electrolyte abnormalities. Phosphorus is better. Will reduce K-Phos 1 tablet 2 times daily. Admission and Anticipated Discharge Date Admission Date: September 12, 2023 Subjective Seen for hyponatremia and volume overload. No shortness of breath. He is making urine and was net -2.8 L yesterday. Sodium up to 1.3. Review of Systems Review of Systems: All other systems were reviewed and negative except as noted in HPI Physical Exam Physical Exam: General exam: Appears comfortable, no acute distress HEENT: Pupils are equal and reactive to light Neck: No JVD, neck is supple trachea is midline Respiratory system: Clear breath sounds bilaterally. Gastrointestinal: Abdomen is soft, non distended, non tender, bowel sounds are present CVS: Regular rate and rhythm. No murmurs, rubs or gallops Musculoskeletal: No joint or muscle tenderness Extremities: Non tender, no edema, peripheral pulses are present Neuro: Oriented, no tremors, no focal neurological deficits Skin: No rashes Results & Data Vital Signs (Past 12 Hours) Vital Signs Temp Pulse Pulse Resp BP Pulse Ox O2 Del Method 09/15/23 07:52 36.8 C 59 L 22 121/81 93 Room Air 09/15/23 07:21 92 H 09/15/23 03:15 37.0 C 103 H 15 106/64 95 Room Air 09/15/23 01:17 97 H
--- NOTE | 2023-09-15 12:20 | Gastroenterology Progress Note ---
Date of Service September 15, 2023 Assessment & Plan Admission and Anticipated Discharge Date Admission Date: September 12, 2023 Subjective No complaints. He is tach 90-100's, VS otherwise unremarkable. He is comfortable, sitting on edge of bed. Abd soft NT Labs reviewed bili 6 from 9 yest, hgb 10, Na 123, Creat 0.7 A/P: Alcoholic liver disease with chronic liver disease, alc hep s/p NAC D1 Solumedrol - Follow LFT's. Cont steroids; Lille score on d4. Renal for diuretic/sodium management. Results & Data Vital Signs (Past 12 Hours) Vital Signs Temp Pulse Pulse Resp BP Pulse Ox O2 Del Method 09/15/23 11:38 36.4 C L 100 H 20 112/74 97 Room Air 09/15/23 07:52 36.8 C 59 L 22 121/81 93 Room Air 09/15/23 07:21 92 H 09/15/23 03:15 37.0 C 103 H 15 106/64 95 Room Air 09/15/23 01:17 97 H
[2023-09-15] MEDS: ENOXAPARIN INJ 40 MG/0.4 ML SYR SQ SCH (12:57)
[2023-09-15] MEDS: POTASSIUM CHLORIDE CRTAB 20 MEQ TABCR PO SCH (12:59)
[2023-09-15] MEDS: POT PHOSPHATE MONOBASIC W/ SOD TAB PO SCH (20:38)
[2023-09-16] MEDS: SPIRONOLACTONE 25 MG TAB PO SCH ×2 (07:54→21:12)
[2023-09-16 07:57] LABS: Hematocrit (blood only) 28.1 % (42.0-52.0); Hemoglobin 10.2 g/dl (14.0-18.0); Mean Corpuscular Hemoglobin 32.8 pg (25.0-34.0); Mean Corpuscular Hgb Conc 36.3 g/dL (32.0-36.0); Mean Corpuscular Volume 90.4 fL (80.0-100.0); Mean Platelet Volume 10.1 fL (9.4-12.4); Platelet Count 187 K/uL (130-400); RDW Coefficient of Variation 25.5 % (11.5-14.5); RDW Standard Deviation 79.7 fL (36.4-46.3); Red Blood Count 3.11 M/uL (4.70-6.10); White Blood Count 17.37 K/ul (4.8-10.8)
[2023-09-16 07:58] LABS: Albumin Level 2.9 gm/dl (3.4-5.0); BUN Creatinine Ratio 38.9 (10-20); Calcium 7.9 mg/dl (8.6-10.3); Creatinine Clr Calc Pharmacy 117.8 ml/min; Est GFR (African American) 122.6 ml/min; Est GFR (Non-African American) 105.8 ml/min; Globulin 2.8 gm/dl (2.5-4.0); Potassium 4.4 mmol/L (3.5-5.1); Total Protein 5.7 gm/dl (6.0-8.3)
[2023-09-16 08:05] LABS: INR 1.7 (0.9-1.1); Prothrombin Time 17.8 Seconds (9.0-12.0)
[2023-09-16] MEDS: STAT IV/IM STA (08:17)
--- NOTE | 2023-09-16 09:43 | Gastroenterology Progress Note ---
Date of Service September 16, 2023 Assessment & Plan (1) Decompensated hepatic cirrhosis: Plan: 53 year old male with history of HTN and ETOH abuse admitted with abdominal ascites, imaging concerning for cirrhotic appearing liver, MELD 28, DF 33.8. He is awake, alert and oriented without any signs of hepatic encephalopathy. US paracentesis 09/12 wo SBP. - Monitor LFTs, coag function, mental status and renal function daily - PPI PO BID - Methylprednisolone IV daily - Lille score tomorrow - Nephrology for diuretic and hyponatremia management - 2g Na diet - ETOH cessation, avoid NSAIDs, no APAP >2g a day if needed - Will arrange Hepatology f/u upon DC for continued management of cirrhosis and alcoholic hepatitis Admission and Anticipated Discharge Date Admission Date: September 12, 2023 Supervising Physician Co-Signing Physician Notes I saw and evaluated the patient, the patient does have a long history of liver disease as a result of alcohol abuse. His liver enzymes and bilirubin appear to be stable from admission, and have no evidence of infection on a paracentesis steroid therapy was initiated 48 hours ago. Recommendation Low-sodium diet Continue with steroid therapy Patient with labs to include a CMP, CBC and INR Patient should stop all alcohol consent Subjective Pt wo abd pain, n/v. LFTs similar Review of Systems Review of Systems: All systems reviewed & are unremarkable except as noted in HPI & below Physical Exam Constitutional: WD/WN, vitals as above well groomed, cooperative and comfortable Eyes: PERRLA, icteric sclera ENMT: external ear and nose normal, oropharynx normal Respiratory: normal respiratory effort, lungs clear to auscultation Cardiovascular: RRR, no murmur, no edema Gastrointestinal (Abdomen): normal bowel sounds, soft, nontender, no hepatosplenomegaly Skin: no rashes, warm and dry + jaundice Neurologic: Motor/Sensory: no asterixis Psychiatric: A+Ox3, euthymic affect Lymphatic: no lymphedema Results & Data Vital Signs (Past 12 Hours) Vital Signs Temp Pulse Pulse Resp BP Pulse Ox O2 Del Method 09/16/23 07:48 36.9 C 103 H 18 132/79 93 Room Air 09/16/23 07:00 82 09/16/23 03:40 36.7 C 93 H 16 115/73 93 Room Air 09/16/23 00:03 36.8 C 96 H 18 130/77 96 Room Air 09/15/23 23:17 103 H
--- NOTE | 2023-09-16 10:00 | Nephrology Progress Note ---
Date of Service September 16, 2023 Assessment & Plan Admission and Anticipated Discharge Date Admission Date: September 12, 2023 Subjective Assessment & Plan (1) Hyponatremia: Plan: Sec to Hypervolemic Hyponatremia with decompensated Liver Cirrhosis. newly Diagnosed with this. Stop Iv lasix. See with torsemide 20 bid for Discharge planning.. Stop urea--Dont like using in patient with Liver Cirrhosis raise Aldactone 25 mg twice daily to lower the Kcl supplement dose. Nobody takes 40 qid at home !!! renal function normal. hard to get exact combination of Diuretics and Kcl Supplement. Remove andrea He will need to establish PCP and nephrology. (2) Decompensated hepatic cirrhosis: Plan: Patient with decompensated cirrhosis with multiple electrolyte abnormalities. Phosphorus is better. Will reduce K-Phos 1 tablet 2 times daily. Subjective Seen for hyponatremia and volume overload. No shortness of breath. He is making urine Sodium up to 125. Review of Systems Review of Systems: All other systems were reviewed and negative except as noted in HPI Physical Exam Physical Exam: General exam: Appears comfortable, no acute distress HEENT: Pupils are equal and reactive to light Neck: No JVD, neck is supple trachea is midline Respiratory system: Clear breath sounds bilaterally. Gastrointestinal: Abdomen is soft, non distended, non tender, bowel sounds are present CVS: Regular rate and rhythm. No murmurs, rubs or gallops Musculoskeletal: No joint or muscle tenderness Extremities: Non tender, no edema, peripheral pulses are present Neuro: Oriented, no tremors, no focal neurological deficits Skin: No rashes Results & Data Vital Signs (Past 12 Hours) Vital Signs Temp Pulse Pulse Resp BP Pulse Ox O2 Del Method 09/16/23 07:48 36.9 C 103 H 18 132/79 93 Room Air 09/16/23 07:00 82 09/16/23 03:40 36.7 C 93 H 16 115/73 93 Room Air 09/16/23 00:03 36.8 C 96 H 18 130/77 96 Room Air 09/15/23 23:17 103 H
[2023-09-16] MEDS: TORSEMIDE 20 MG TAB PO SCH (11:07)
--- NOTE | 2023-09-16 11:17 | Hospitalist Progress Note ---
Date of Service September 16, 2023 Assessment & Plan (1) Decompensated hepatic cirrhosis: (2) Alcoholism: (3) Anemia: (4) Hyponatremia: (5) Hyperbilirubinemia: (6) Transaminitis: (7) Hypokalemia: Plan Mr. Cho is a 53-year-old male who has a prior past medical history of hyp ertension and alcohol dependence who was admitted on 09/12 for new onset decompensated liver cirrhosis. Prior to admission, patient noted increase in abdominal swelling over last 3 weeks, finally prompting presentation. #Transaminitis c/f EtOH hepatitis *improved #Cirrhosis 2/2 likely EtOH, decompensated #Jaundice Tbili 7.5, AST 131, ALT 54, ALP 108 MRCP with large amount of ascites, sludge, cirrhotic liver Doppler negative for PVT - No known hx history of cirrhosis - MELD-Na: 19 on admission, MELD 30 -> 29 - No prior EGD/c-scope - PSE: Denies h/o HE, no evidence of HE on exam, ctm - Ascites: c/w Rafael 50mgBID per nephrology -Discontinue LASIX IV, transitioned to PO torsemide 20mg BID -s/p IR paracentesis fluid studies not consistent with SBP , removed 2.75 liters -Cipro 500mg BID SBP ppx - EV: No evidence of GIB presently, close monitoring - HRS: Cr at baseline - Daily CMP + INR to calculate MELD; low Na diet -Follow up KARLEE, AMA, ASMA, ceruloplasmin labs -Acute hep panel pending - GI consult -Plan for OP EGD/C-scope -Hepatology follow up -NAC completed 09/14/2023 -40mg IV methylprednisone daily -Mita score in am #Hyponatremia, hypervolemic Discussed with nephrology who recommends IV Lasix Corrected from 119 to 122->123 Lasix 40 mg IV TID--> PO torsemied [address] Barr catheter for strict I's and O's Potassium supplementation adjusted per Nephrology FR to 1500ml Urea per Nephrology: discontinued #SIRS resolved - tachycardia, leukocytosis Likely iso of decompensated cirrhosis No infectious etiology elucidated at this time #folate deficiency -Replace #Hypokalemia Replace Check mag and Phos as well #Alcohol dependence pt reports 2 beers/daily for years last drink yesterday, 1 beer, hasn't felt well enough to drink awss scale Daily thiamine and folic acid #Normocytic Anemia Admitting hemoglobin 10.7, no signs of bleeding Place on PPI PID likely iso chronic illness -Trend CBC transfuse < 7 DVT ppx: lovenox FULL CODE PCP: Pt previously followed Dr. Lee years ago; however has not seen a Provider in many years Dispo: admit to PCU Admission and Anticipated Discharge Date Admission Date: September 12, 2023 Subjective No acute events overnight Reports feeling much better overall Denies nausea, vomiting, confusion, abdominal pain Physical Exam Constitutional: WD/WN, vitals as above Respiratory: normal respiratory effort, lungs clear to auscultation Cardiovascular: RRR, no murmur, no edema lower extremity edema near resolved (trace) Gastrointestinal (Abdomen): soft on exam, distention significantly improved, Results & Data Results & Data Vital Signs (Past 12 Hours) Vital Signs Temp Pulse Pulse Resp BP Pulse Ox O2 Del Method 09/16/23 11:10 36.7 C 97 H 17 125/72 95 Room Air 09/16/23 07:48 36.9 C 103 H 18 132/79 93 Room Air 09/16/23 07:00 82 09/16/23 03:40 36.7 C 93 H 16 115/73 93 Room Air 09/16/23 00:03 36.8 C 96 H 18 130/77 96 Room Air 09/15/23 23:17 103 H Laboratory Results Short CBC 09/16/23 Range/Units 07:12 WBC 17.37 H (4.8-10.8) K/ul Hgb 10.2 L (14.0-18.0) g/dl Hct 28.1 L (42.0-52.0) % Plt Count 187 (130-400) K/uL BMP 09/16/23 07:12 Sodium 125 L Potassium 4.4 D Chloride 92 L Carbon Dioxide 28 BUN 28 H Creatinine 0.72 Glucose 103 H Calcium 7.9 L Liver Function 09/16/23 Range/Units 07:12 Total Bilirubin 6.0 H (0.2-1.0) mg/dl AST 76 H (13-39) U/L ALT 41 (7-52) U/L Alkaline Phosphatase 73 (34-104) U/L Albumin 2.9 L (3.4-5.0) gm/dl Medications Administered Home Medications Medication Instructions Recorded Confirmed Last Taken bismuth subsalicylate 262 mg/15 mL 524 mg PO QID PRN .GI-UPSET/PAIN 09/12/23 09/12/23 Unknown oral suspension (Pepto-Bismol) Active Medications Generic Name Dose Route Start Last Admin Trade Name Freq PRN Reason Stop Dose Admin Ciprofloxacin 500 mg 09/14/23 21:00 09/16/23 07:55 Ciprofloxacin 500 Mg Tab PO 09/24/23 20:59 500 mg BID ENDY Administration Protocol Enoxaparin Sodium 40 mg 09/15/23 11:45 09/16/23 07:55 Enoxaparin Inj 40 Mg/0.4 Ml Syr SQ 10/15/23 11:44 40 mg QAM ENDY Administration Folic Acid 1 mg 09/13/23 09:00 09/16/23 07:55 Folic Acid 1 Mg Tab PO 10/13/23 08:59 1 mg QAM ENDY Administration Methylprednisolone 40 mg/ 0.64 mls @ 1.5 mls/min 09/15/23 09:00 09/16/23 07:57 Syringe IV 10/15/23 08:59 1.5 mls/min DAILY ENDY Administration Pantoprazole Sodium 40 mg 09/12/23 21:00 09/16/23 07:56 Pantoprazole 40 Mg Tab PO 10/12/23 20:59 40 mg BID ENDY Administration Potassium Phosphate 1 tab 09/15/23 21:00 09/16/23 07:57 Pot Phosphate Monobasic W/ Sod Tab PO 10/15/23 20:59 1 tab BID ENDY Administration Thiamine HCl 100 mg 09/13/23 09:00 09/16/23 07:55 Thiamine Hcl 100 Mg Tab PO 10/13/23 08:59 100 mg QAM ENDY Administration Torsemide 20 mg 09/16/23 10:15 09/16/23 11:07 Torsemide 20 Mg Tab PO 10/16/23 10:14 20 mg [id number] ENDY Administration (3) Anemia Anemia type: unspecified type Qualified Code(s): D64.9 - Anemia, unspecified
[2023-09-16] MEDS: POTASSIUM CHLORIDE CRTAB 20 MEQ TABCR PO SCH (21:10)
[2023-09-17 06:29] LABS: Hemoglobin 10.5 g/dl (14.0-18.0); Mean Corpuscular Hemoglobin 33.5 pg (25.0-34.0); Mean Corpuscular Hgb Conc 37.5 g/dL (32.0-36.0); Mean Corpuscular Volume 89.5 fL (80.0-100.0); Mean Platelet Volume 10.5 fL (9.4-12.4); Platelet Count 205 K/uL (130-400); RDW Standard Deviation 82.3 fL (36.4-46.3); Red Blood Count 3.13 M/uL (4.70-6.10); White Blood Count 17.42 K/ul (4.8-10.8)
[2023-09-17 06:43] LABS: Albumin Globulin Ratio 0.9 (0.9-2); BUN Creatinine Ratio 32.1 (10-20); Bilirubin,Total 5.5 mg/dl (0.2-1.0); Calcium 8.2 mg/dl (8.6-10.3); Creatinine Clr Calc Pharmacy 96.7 ml/min; Est GFR (Non-African American) 99.3 ml/min; Globulin 3.2 gm/dl (2.5-4.0); Magnesium 1.9 mg/dl (1.7-2.4); Phosphorus 4.2 mg/dl (2.5-4.9); Potassium 4.4 mmol/L (3.5-5.1); Total Protein 6.2 gm/dl (6.0-8.3)
[2023-09-17 06:54] LABS: INR 1.5 (0.9-1.1); Prothrombin Time 16.3 Seconds (9.0-12.0)
[2023-09-17 07:23] LABS: AFP Tumor Marker Serum 2.6 ng/mL (<6.1); Anti Nuclear Antibody Screen NEGATIVE (NEGATIVE); Ceruloplasmin 27 mg/dL (18-36); HBSAG NON-REACTIVE (NON-REACTIVE); Hepatitis A Antibody IgM NON-REACTIVE (NON-REACTIVE); Hepatitis B Core Antibody IgM NON-REACTIVE (NON-REACTIVE)
--- NOTE | 2023-09-17 09:49 | Gastroenterology Progress Note ---
Date of Service September 17, 2023 Assessment & Plan (1) Decompensated hepatic cirrhosis: Plan: 53 year old male with history of HTN and ETOH abuse admitted with abdominal ascites, imaging concerning for cirrhotic appearing liver, MELD 28, DF 33.8. He is awake, alert and oriented without any signs of hepatic encephalopathy. US paracentesis 09/12 wo SBP. Lille score 0.152 - Monitor LFTs, coag function, mental status and renal function daily - PPI PO BID - Methylprednisolone IV daily ; upon DC please convert to Prednisolone 40mg daily x 28 days and then taper per instructions in GI/Hepatology clinic - Nephrology for diuretic and hyponatremia management - 2g Na diet - ETOH cessation, avoid NSAIDs, no APAP >2g a day if needed - GI to sign off; Will arrange Hepatology f/u upon DC for continued management of cirrhosis and alcoholic hepatitis Admission and Anticipated Discharge Date Admission Date: September 12, 2023 Supervising Physician Co-Signing Physician Notes I saw Aand evaluated the patient, would recommend use of prednisone, taper to be given. Please call with any questions or concerns GI to sign off. Patient should follow-up with our office in 6 to 8 weeks or sooner if needed. Subjective Doing well, denies abd pain, n/v. Tolerating solid meals. Had BM this AM wo rectal bleeding/dark tarry stools Review of Systems Review of Systems: All systems reviewed & are unremarkable except as noted in HPI & below Physical Exam Constitutional: WD/WN, vitals as above well groomed, cooperative and comfortable ENMT: external ear and nose normal, oropharynx normal Respiratory: normal respiratory effort, lungs clear to auscultation Cardiovascular: RRR, no murmur, no edema Gastrointestinal (Abdomen): normal bowel sounds, soft, nontender, no hepatosplenomegaly Skin: no rashes, warm and dry + jaundice Neurologic: Motor/Sensory: no asterixis Psychiatric: A+Ox3, euthymic affect Lymphatic: no lymphedema Results & Data Vital Signs (Past 12 Hours) Vital Signs Temp Pulse Pulse Resp BP Pulse Ox O2 Del Method 09/17/23 07:50 36.7 C 83 18 122/76 96 Room Air 09/17/23 05:55 83 09/17/23 03:25 36.7 C 93 H 18 134/62 94 Room Air 09/16/23 23:58 36.8 C 94 H 18 118/73 93 Room Air 09/16/23 23:00 103 H
--- NOTE | 2023-09-17 09:51 | Nephrology Progress Note ---
Date of Service September 17, 2023 Assessment & Plan Admission and Anticipated Discharge Date Admission Date: September 12, 2023 Subjective Assessment & Plan (1) Hyponatremia: Plan: Sec to Hypervolemic Hyponatremia with decompensated Liver Cirrhosis. newly Diagnosed with this. na now 126. Lower Kcl to 20 bid. Continue Aldactone 50 bid raise torsemide to 40 bid. D/c K phos renal function normal. hard to get exact combination of Diuretics and Kcl Supplement. He will need to establish PCP and nephrology and very critical we get labs through nephrology--CMP and CBC through nephro RN for further adjustments. Do On (2) Decompensated hepatic cirrhosis: Plan: Patient with decompensated cirrhosis with multiple electrolyte abnormalities. Phosphorus is better. Will reduce K-Phos 1 tablet 2 times daily. Subjective Seen for hyponatremia and volume overload. No shortness of breath. He is making urine Sodium up to 126 now. NO andrea. Review of Systems Review of Systems: All other systems were reviewed and negative except as noted in HPI Physical Exam Physical Exam: General exam: Appears comfortable, no acute distress HEENT: Pupils are equal and reactive to light Neck: No JVD, neck is supple trachea is midline Respiratory system: Clear breath sounds bilaterally. Gastrointestinal: Abdomen is soft, non distended, non tender, bowel sounds are present CVS: Regular rate and rhythm. No murmurs, rubs or gallops Musculoskeletal: No joint or muscle tenderness Extremities: Non tender, no edema, peripheral pulses are present Neuro: Oriented, no tremors, no focal neurological deficits Skin: No rashes Results & Data Vital Signs (Past 12 Hours) Vital Signs Temp Pulse Pulse Resp BP Pulse Ox O2 Del Method 09/17/23 07:50 36.7 C 83 18 122/76 96 Room Air 09/17/23 05:55 83 09/17/23 03:25 36.7 C 93 H 18 134/62 94 Room Air 09/16/23 23:58 36.8 C 94 H 18 118/73 93 Room Air 09/16/23 23:00 103 H
--- NOTE | 2023-09-17 12:03 | Discharge Summary ---
Discharge Summary Date of Service September 17, 2023 Notes For Next Care Provider -Follow up KARLEE, AMA, ASMA, ceruloplasmin labs Medication Changes From Visit -Start Aldactone 50mg two times daily -Start Torsemide 40mg two times daily -Start Potassium chloride 20meq two times daily -Start Pantoprazole 40mg two times daily -Start Prednisolone 40mg (10ml) daily for 28 days your next dose is tomorrow 09/17 and end of course is 10/16/2023 Admission HPI Per Admitting Provider This is a 53-year-old male who has a prior past medical history of hypertension and alcohol dependence who presents to ED secondary to abdominal pain and bloating for the past 3 weeks. He states he was in his normal state of health until about 3 weeks ago. He noticed gradual enlargement and distention of his abdomen and pain. He said initially pain was in his lower abdomen but now is all over. He describes the pain as an ache. The pain comes and goes, nothing seems to make it better or worse including meals. He has never experienced anything like this in the past. Position change does not make the symptoms any worse. He denies any nausea, vomiting, hematemesis, melena or hematochezia. He states his bowel movements have been a lot smaller than normal. He complains of early satiety. He states his baseline weight is around 1 65-1 68. He is unsure if he has gained or lost any weight. He is unsure if he has any lower extremity swelling. He denies any recent illness, fever, chills, sweats, lightheadedness, dizziness, shortness breath at rest or with exertion, chest pain, hemoptysis, nausea, vomiting, dysuria, increased urgency or frequency with urination. In ED patient remained hemodynamically stable and slightly tachycardic. Lab work abnormalities were notable for leukocytosis 12.31k, anemia with a hemoglobin of 10.6 and 28.1, sodium 119, testing 3.3, chloride 84, gap 12, BUN 10, creatinine 0.59, serum osmolality 269, total bilirubin 7.5, AST 131, ALT 56, alkaline phosphatase [address] abdomen pelvis with evidence of cirrhosis, moderate ascites And concern for heterogenous enhancement throughout the liver with areas of fatty change. Underlying multifocal HCC would be difficult to exclude. In ED he received 500 mL of IV fluid. Admission Exam Per Admitting Provider Constitutional: WD/WN, vitals as above, NAD, sitting up in bed, pleasant, conversing easily Head: Normocephalic, Atraumatic Eyes: PERRL, conjunctivae normal, icteric sclerae ENMT: external ear and nose normal, oropharynx normal Neck: trachea midline, no thyromegaly normal visual inspection Respiratory: normal respiratory effort, lungs clear to auscultation, no wheeze, rales, rhonchi. Normal insp/exp effort, no accessory muscle use Cardiovascular: RRR, no murmur, +2-3 lower extremity edema, no erythema Vessels: no JVD or carotid bruit Chest: normal inspection of chest Abdomen: Distended abdomen, tense, nontender to palpation, distant/hypoactive bowel sounds Musculoskeletal: no cyanosis or clubbing, extremities motor strength 5/5 Skin: Jaundice, no rashes, warm and dry normal turgor Neurologic: PERRL, EOMI, accommodation nl, no face palsy, no dysarthria CN's II-XI intact bilaterally and moves all extremities Psychiatric: A+Ox3, euthymic affect Lymphatic: no cervical or axillary lymphadenopathy : deferred Principal Dx & Hospital Course #1 = Principal Diagnosis (1) Decompensated hepatic cirrhosis: (2) Alcoholism: (3) Anemia: (4) Hyponatremia: (5) Hyperbilirubinemia: (6) Transaminitis: (7) Hypokalemia: Plan Mr. Cho is a 53-year-old male who has a prior past medical history of hypertension and alcohol dependence who was admitted on 09/12 for new onset decompensated liver cirrhosis. Prior to admission, patient noted increase in abdominal swelling over last 3 weeks, finally prompting presentation. Patient started on IV diuresis and underwent IR paracentesis on 09/12 with 2.75 liters removed. Fluid not remarkable for infection and patient started on NAC and IV methylpred. Patient followed closely by Nephrology for management of hyponatremia and converted to PO torsemide, spironolactone, and KCL with plans for close OP lab monitoring. GI recommends 28 days of methylprednisolone upon discharge with close GI follow up to be arranged. #Transaminitis c/f EtOH hepatitis *improved #Cirrhosis 2/2 likely EtOH, decompensated #Jaundice Tbili 7.5, AST 131, ALT 54, ALP 108 MRCP with large amount of ascites, sludge, cirrhotic liver Doppler negative for PVT - No known hx history of cirrhosis - MELD-Na: 19 on admission, MELD 30 -> 29 - No prior EGD/c-scope - PSE: Denies h/o HE, no evidence of HE on exam, ctm - Ascites: c/w Rafael 50mgBID per nephrology -Discontinue LASIX IV, transitioned to PO torsemide 20mg BID -s/p IR paracentesis fluid studies not consistent with SBP , removed 2.75 liters -Cipro 500mg BID SBP while admitted - EV: No evidence of GIB presently, close monitoring - HRS: Cr at baseline [ ]Follow up KARLEE, AMA, ASMA, ceruloplasmin labs and Acute hep panel pending - GI consult -Plan for OP EGD/C-scope -Hepatology follow up -NAC completed 09/14/2023 -40mg IV methylprednisone daily -40mg methylpred upon discharge for 28 days #Hyponatremia, hypervolemic Discussed with nephrology who recommends IV Lasix Corrected from 119 to 122->123 Lasix 40 mg IV TID--> PO torsemide 40mg BID Potassium supplementation adjusted per Nephrology Urea per Nephrology: discontinued Spironolactone 50mg BID -Close lab follow up upon discharge #SIRS resolved - tachycardia, leukocytosis Likely iso of decompensated cirrhosis No infectious etiology elucidated at this time #folate deficiency -Replace #Hypokalemia Replace Check mag and Phos as well #Alcohol dependence pt reports 2 beers/daily for years last drink yesterday, 1 beer, hasn't felt well enough to drink awss scale Daily thiamine and folic acid #Normocytic Anemia Admitting hemoglobin 10.7, no signs of bleeding Place on PPI BID, continue likely iso chronic illness Upon discharge, patient was eating well, ambulating well, and denying any uncontrolled symptoms. Patient AOx4. Discharge Exam Constitutional WD/WN, vitals as above Eyes scleral icterus Respiratory normal respiratory effort, lungs clear to auscultation Cardiovascular RRR, no murmur, no edema Gastrointestinal (Abdomen) soft, slightly protuberant, but no fluid shift no tenderness noted Skin jaundice improved Neurologic PERRL, EOMI, accommodation nl, no face palsy, no dysarthria Updated Medication List Medication Instructions Recorded Confirmed Type bismuth subsalicylate 262 mg/15 mL 524 mg PO QID PRN .GI-UPSET/PAIN 09/12/23 09/12/23 History oral suspension (Pepto-Bismol) pantoprazole 40 mg tablet,delayed 40 mg PO BID 30 days #60 tabs 09/17/23 Rx release potassium chloride 20 mEq 20 meq PO BID 30 days #60 tabs 09/17/23 Rx tablet,extended release(part/cryst) prednisolone sodium phosphate 20 40 mg (10 mL) PO DAILY 28 days 09/17/23 Rx mg/5 mL (4 mg/mL) oral solution #280 mL spironolactone 25 mg tablet 50 mg (2 x 25 mg) PO BID 30 days 09/17/23 Rx #120 tabs torsemide 20 mg tablet 40 mg (2 x 20 mg) PO BID17 30 days 09/17/23 Rx #60 tabs Hospital Stay Data Consultations 09/12/23 15:02 ED Decision to Admit Stat 09/12/23 16:01 Consult Nephrology Routine 09/12/23 16:04 Consult Gastroenterology Routine Diagnostic Imagining Performed 09/12/23 14:04 CT Abd and Pelvis [CT abd pelvis IV con only] Stat 09/12/23 15:32 US duplex portal hepatic veins Stat US venous doppler LE BI Stat 09/12/23 15:54 MR MRCP Routine 09/13/23 08:00 IR paracentesis abd w/img US Routine Pending Results Patient Have Any Pending Studies at Discharge: No Discharge Instructions Given to Patient (Per Discharging Provider) You were admitted for abdominal swelling and found to have cirrhosis, or severe scarring of your liver (irreversible damage). Fluid was drained from your abdomen and your were started on water pills to help you reduce swelling. It is suspected this was related to alcohol use. It is imperative you avoid alcohol by all means possible or else this can cause further decompensation of a very damaged liver. If you use tylenol for pain management, you must ensure it is less than 2,000 mg daily. You will be started on the following medications to help with your fluid balance: -Start Aldactone 50mg two times daily -Start Torsemide 40mg two times daily -Start Potassium chloride 20meq two times daily -Start Pantoprazole 40mg two times daily -Start Prednisolone 40mg (10ml) daily for 28 days your next dose is tomorrow 03/20 and end of course is 10/16/2023 unless directed otherwise by Liver doctor. You will need follow up with Nephrology for labs to monitor your sodium levels. They will coordinate labs with you in the next 24-48 hours upon discharge to ensure electrolytes are stable Please continue to keep sodium less than 2 g daily. This means limiting packaged foods and avoiding additional salt on foods. Follow up with GI/Liver doctors will be coordinated. Total Time Total Time Spent Total Time Spent (In Minutes): 45
[2023-09-17] MEDS ORDERED: TORSEMIDE 20 MG TAB PO SCH (17:00)
[2023-09-17] MEDS ORDERED: POTASSIUM CHLORIDE CRTAB 20 MEQ TABCR PO SCH (21:00)
== END 2023-09-17 14:40 | disposition home or self-care (01) | DRG 433 ==
LOC: ED 12:34 → SUATTDRO 15:54 → 2S 15:54 → 2N 09-16 14:47